=== PATIENT | male | born 1960 | race Two or more races ===

== ENCOUNTER 2016-10-07 13:58 | Inpatient (IN) | payer OTHER ==
[2016-10-07 15:11] VITALS: BMI 33.2
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
[2016-10-07] MEDS ORDERED: MAGNESIUM CITRATE 300 ML BOTTLE PO PRN (16:41)
[2016-10-07] MEDS ORDERED: hydrOXYzine PAMOATE 50 MG CAPSULE (FP) PO PRN (16:41)
[2016-10-07] MEDS ORDERED: chlordiazePOXIDE HCL 25 MG CAPSULE PO PRN (16:41)
[2016-10-07] MEDS ORDERED: LOPERAMIDE HCL 2 MG CAPSULE PO PRN (16:41)
[2016-10-07] MEDS ORDERED: MAGNESIUM HYDROX 2400MG/30ML ORAL SUSPENSION 30 ML CUP PO PRN (16:41)
[2016-10-07] MEDS ORDERED: MAG HYDROX/AL HYDROX/SIMETH 30 ML UNIT-DOSE CUP PO PRN (16:41)
[2016-10-07] MEDS ORDERED: P-EPHED 60MG/TRIPROLIDI 2.5MG TABLET PO PRN (16:41)
[2016-10-07] MEDS ORDERED: guaiFENesin/D-METHORPHAN HB 10 ML UNIT-DOSE CUPS PO PRN (16:41)
[2016-10-07] MEDS ORDERED: MENTHOL/PHENOL 1 EACH UD MM PRN (16:41)
[2016-10-07] MEDS ORDERED: chlordiazePOXIDE HCL 25 MG CAPSULE PO ONE (16:41)
[2016-10-07] MEDS ORDERED: diphenhydrAMINE HCL 50 MG CAPSULE PO PRN (16:41)
[2016-10-07] MEDS ORDERED: ACETAMINOPHEN 325 MG TABLET (FP) PO PRN (16:41)
[2016-10-07] MEDS ORDERED: ALBUTEROL SO4 6.7 GM HFA INHALER IH PRN (17:19)
[2016-10-07] MEDS: IBUPROFEN 400 MG TABLET (FP) PO PRN (17:24)
[2016-10-07 22:04] LABS: URINE APPEARANCE CLEAR; URINE BILIRUBIN NEGATIVE (NEGATIVE); URINE BLOOD NEGATIVE (NEGATIVE); URINE COLOR LTYELLOW; URINE GLUCOSE (UA) NEGATIVE (NEGATIVE); URINE KETONE NEGATIVE (NEGATIVE); URINE LEUK ESTERASE NEGATIVE (NEGATIVE); URINE NITRITE NEGATIVE (NEGATIVE); URINE PROTEIN NEGATIVE (NEGATIVE); URINE UROBILINOGEN NEGATIVE E.U./dl (0.2-1.0)
[2016-10-07] MEDS: THIAMINE HCL 100 MG TABLET (FP) PO SCH (22:43)
[2016-10-07] MEDS: chlordiazePOXIDE HCL 25 MG CAPSULE PO SCH (22:43)
[2016-10-08] MEDS: IBUPROFEN 400 MG TABLET (FP) PO PRN ×2 (05:29→17:03)
[2016-10-08] MEDS: chlordiazePOXIDE HCL 25 MG CAPSULE PO SCH ×4 (05:29→22:14)
[2016-10-08] MEDS: PRENATAL VITAMINS W/ FOLIC ACID TABLET (FP) PO SCH (10:35)
[2016-10-08 11:06] LABS: ALBUMIN 3.3 g/dl (3.4-5.0); ALK PHOS 71 U/L (45-117); ANION GAP 9 (8-16); CO2 25 mmol/L (21-32); GLUCOSE,RANDOM 87 mg/dL (74-106); SGOT/AST 29 U/L (15-37); SGPT/ALT 30 U/L (12-78); TOT PROT 5.8 g/dl (6.4-8.2)
--- NOTE | 2016-10-08 11:16 | PN ---
[facility] CIWA - CIWA Score Nausea/Vomitin-No Nausea/No Vomiting Muscle Tremors: 3 Anxiety: 4-Mod. Anxious/Guarded Agitation: 4-Moderately Restless Paroxysmal Sweats: 3 Orientation: 0-Oriented Tacttile Disturbances: 1-Very Mild Itch/Numbness Auditory Disturbances: 0-None Visual Disturbances: 0-None Headache: 0-None Present CIWA-Ar Total Score: 15 BHS Progress Note (SOAP) Subjective: ANXIETY,TREMORS,SWEATING,INTERRUPTED SLEEP,RESTLESS & PAIN LEFT WRIST WITH CAST. Objective: 10/08/16 11:10 Vital Signs - 8 hr 10/08/16 10/08/16 10/08/16 03:36 06:22 09:26 Temperature 98 F 98.1 F Pulse Rate 65 86 Respiratory 18 18 18 Rate Blood Pressure 141/86 142/80 Laboratory Last Values Sodium 142 mmol/L (136-145) 10/08/16 06:30 Potassium 3.5 mmol/L (3.5-5.1) 10/08/16 06:30 Chloride 108 mmol/L (98-107) H 10/08/16 06:30 Carbon Dioxide 25 mmol/L (21-32) 10/08/16 06:30 Anion Gap 9 (8-16) 10/08/16 06:30 BUN 13 mg/dL (7-18) 10/08/16 06:30 Creatinine 1.0 mg/dL (0.7-1.3) D 10/08/16 06:30 Creat Clearance w eGFR > 60 (>60) 10/08/16 06:30 Random Glucose 87 mg/dL (74-106) 10/08/16 06:30 Calcium 9.0 mg/dL (8.5-10.1) 10/08/16 06:30 Total Bilirubin 1.0 mg/dL (0.2-1.0) D 10/08/16 06:30 AST 29 U/L (15-37) D 10/08/16 06:30 ALT 30 U/L (12-78) D 10/08/16 06:30 Alkaline Phosphatase 71 U/L (45-117) 10/08/16 06:30 Total Protein 5.8 g/dl (6.4-8.2) L 10/08/16 06:30 Albumin 3.3 g/dl (3.4-5.0) L 10/08/16 06:30 Urine Color Ltyellow 10/07/16 21:00 Urine Appearance Clear 10/07/16 21:00 Urine pH 6.0 (5.0-8.0) 10/07/16 21:00 Ur Specific [place] 1.016 (1.001-1.035) 10/07/16 21:00 Urine Protein Negative (NEGATIVE) 10/07/16 21:00 Urine Glucose (UA) Negative (NEGATIVE) 10/07/16 21:00 Urine Ketones Negative (NEGATIVE) 10/07/16 21:00 Urine Blood Negative (NEGATIVE) 10/07/16 21:00 Urine Nitrite Negative (NEGATIVE) 10/07/16 21:00 Urine Bilirubin Negative (NEGATIVE) 10/07/16 21:00 Urine Urobilinogen Negative E.U./dl (0.2-1.0) 10/07/16 21:00 Ur Leukocyte Esterase Negative (NEGATIVE) 10/07/16 21:00 LABS NOTED Assessment: 10/08/16 11:16 WITHDRAWAL SX. Plan: CONTINUE DETOX
[2016-10-08 11:18] LABS: MCH 30.8 pg (25.7-33.7); MCHC 34.3 g/dl (32.0-35.9); MEAN CELL VOLUME 89.7 fl (80-96); MEAN PLT VOLUME 8.9 fl (7.5-11.1); PLATELET COUNT 187 K/MM3 (134-434); RDW 13.4 % (11.9-15.9); WHITE BLOOD COUNT 3.9 K/mm3 (4.0-10.0)
--- NOTE | 2016-10-08 15:04 | CONSULT ---
[facility] Psychiatric Consult - Data Date of interview: 10/08/16 Admission source: [facility] Identifying data: This is 56 years old male with history of Schizoaffective disorder intoxicated with: Cocaine, Al;cohol, Cannabis, PCP abuse history Substance Abuse History: - Smoking Cessation. Smoking history: Former smoker. Have you smoked in the past 12 months: No. Aproximately how many cigarettes per day: 0. If you are a former smoker, when did you quit?: 3 years ago. Cigars Per Day: 0. Hx Chewing Tobacco Use: No. Initiated information on smoking cessation: No. - Substance & Tx. History. Hx Alcohol Use: Yes. Hx Substance Use: Yes. Substance Use Type: Alcohol, Cocaine, Marijuana. Hx Substance Use Treatment: Yes. - Substances Abused. Alcohol. Route: Oral. Frequency: Daily. Amount used: beer 40oz, 4 bottles. Age of first use: 32. Date of Last Use: 10/06/16. Cocaine. Route: Smoking. Frequency: Daily. Amount used: $50- 60. Age of first use: 24. Date of Last Use: 10/06/16 Medical History: Asthma, LBP, Syncope history, GERD Psychiatric History: P-atient reports to carry Schizopaffective disorder with the most recen [id number] admission at [facility] 2 weeks ago due to hearing voices, reportas takinf prior to admission: Seroquel 100mg po tid Physical/Sexual Abuse/Trauma History: Denies Additional Comment: Seroquel 100mg po tid Mental Status Exam - Mental Status Exam Alert and Oriented to: Person Cognitive Function: Fair Patient Appearance: Unkempt Mood: Sad Affect: Mood Congruent Patient Behavior: Cooperative Speech Pattern: Appropriate Voice Loudness: Normal Thought Process: Goal Oriented Thought Disorder: Being Controlled Hallucinations: Denies Suicidal Ideation: Denies Homicidal Ideation: Denies Insight/Judgement: Fair Sleep: Difficulty falling asleep Appetite: Fair Muscle strength/Tone: Normal Gait/Station: Shuffling Additional Comments: Seroquel 100mg po tid Psychiatric Findings - Problem List ([place] 1, 2,3) (1) Alcohol dependence with uncomplicated withdrawal Current Visit: Yes Status: Acute (2) Cannabis dependence, uncomplicated Current Visit: Yes Status: Chronic (3) Cocaine dependence, uncomplicated Current Visit: Yes Status: Chronic (4) PCP abuse Current Visit: No Status: Acute (5) Alcohol dependence Current Visit: No Status: Chronic (6) Bipolar disorder Current Visit: No Status: Chronic (7) Cocaine dependence Current Visit: No Status: Chronic (8) GERD (gastroesophageal reflux disease) Current Visit: No Status: Chronic (9) Schizoaffective disorder, bipolar type Current Visit: No Status: Chronic (10) marijuana dependence Current Visit: No Status: Chronic - Initial Treatment Plan Initial Treatment Plan: Seroquel 100mg po tid
--- NOTE | 2016-10-08 16:23 | EKG ---
Test Reason : Blood Pressure : / mmHG Vent. Rate : 085 BPM Atrial Rate : 086 BPM P-R Int : 158 ms QRS Dur : 094 ms QT Int : 386 ms P-R-T Axes : 081 076 094 degrees QTc Int : 459 ms NORMAL SINUS RHYTHM NORMAL ECG NO PREVIOUS ECGS AVAILABLE Confirmed by SOCO APONTE MD ([id number]) on 10/08/2016 4:23:15 PM Referred By: Confirmed By:SOCO APONTE MD
[2016-10-08] MEDS: QUEtiapine FUMARATE 100 MG TABLET (FP) PO SCH ×2 (16:26→22:14)
[2016-10-08] MEDS: THIAMINE HCL 100 MG TABLET (FP) PO SCH (22:14)
[2016-10-09] MEDS: QUEtiapine FUMARATE 100 MG TABLET (FP) PO SCH ×3 (05:52→22:10)
[2016-10-09] MEDS: IBUPROFEN 400 MG TABLET (FP) PO PRN (05:52)
[2016-10-09] MEDS: chlordiazePOXIDE HCL 25 MG CAPSULE PO SCH ×3 (05:52→17:30)
[2016-10-09] MEDS: PRENATAL VITAMINS W/ FOLIC ACID TABLET (FP) PO SCH (10:47)
--- NOTE | 2016-10-09 10:50 | PN ---
[facility] CIWA - CIWA Score Nausea/Vomitin-No Nausea/No Vomiting Muscle Tremors: 4-Moderate,w/Arms Extend Anxiety: 4-Mod. Anxious/Guarded Agitation: 4-Moderately Restless Paroxysmal Sweats: 1-Minimal Palms Moist Orientation: 0-Oriented Tacttile Disturbances: 3-Moderate Itch/Numb/Burn Auditory Disturbances: 0-None Visual Disturbances: 0-None Headache: 0-None Present CIWA-Ar Total Score: 16 BHS Progress Note (SOAP) Subjective: ANXIETY,BODYACHES,SWEATS. Objective: 10/09/16 10:49 Vital Signs Temperature 96.7 F L 10/09/16 10:12 Pulse Rate 78 10/09/16 10:12 Respiratory Rate 18 10/09/16 10:12 Blood Pressure 134/80 10/09/16 10:12 O2 Sat by Pulse Oximetry (%) Laboratory Last Values WBC 3.9 K/mm3 (4.0-10.0) L D 10/08/16 06:30 RBC 4.49 M/mm3 (4.00-5.60) 10/08/16 06:30 Hgb 13.8 GM/dL (11.7-16.9) D 10/08/16 06:30 Hct 40.3 % (35.4-49) 10/08/16 06:30 MCV 89.7 fl (80-96) 10/08/16 06:30 MCHC 34.3 g/dl (32.0-35.9) 10/08/16 06:30 RDW 13.4 % (11.9-15.9) 10/08/16 06:30 Plt Count 187 K/MM3 (134-434) 10/08/16 06:30 MPV 8.9 fl (7.5-11.1) 10/08/16 06:30 Sodium 142 mmol/L (136-145) 10/08/16 06:30 Potassium 3.5 mmol/L (3.5-5.1) 10/08/16 06:30 Chloride 108 mmol/L (98-107) H 10/08/16 06:30 Carbon Dioxide 25 mmol/L (21-32) 10/08/16 06:30 Anion Gap 9 (8-16) 10/08/16 06:30 BUN 13 mg/dL (7-18) 10/08/16 06:30 Creatinine 1.0 mg/dL (0.7-1.3) D 10/08/16 06:30 Creat Clearance w eGFR > 60 (>60) 10/08/16 06:30 Random Glucose 87 mg/dL (74-106) 10/08/16 06:30 Calcium 9.0 mg/dL (8.5-10.1) 10/08/16 06:30 Total Bilirubin 1.0 mg/dL (0.2-1.0) D 10/08/16 06:30 AST 29 U/L (15-37) D 10/08/16 06:30 ALT 30 U/L (12-78) D 10/08/16 06:30 Alkaline Phosphatase 71 U/L (45-117) 10/08/16 06:30 Total Protein 5.8 g/dl (6.4-8.2) L 10/08/16 06:30 Albumin 3.3 g/dl (3.4-5.0) L 10/08/16 06:30 Urine Color Ltyellow 10/07/16 21:00 Urine Appearance Clear 10/07/16 21:00 Urine pH 6.0 (5.0-8.0) 10/07/16 21:00 Ur Specific [place] 1.016 (1.001-1.035) 10/07/16 21:00 Urine Protein Negative (NEGATIVE) 10/07/16 21:00 Urine Glucose (UA) Negative (NEGATIVE) 10/07/16 21:00 Urine Ketones Negative (NEGATIVE) 10/07/16 21:00 Urine Blood Negative (NEGATIVE) 10/07/16 21:00 Urine Nitrite Negative (NEGATIVE) 10/07/16 21:00 Urine Bilirubin Negative (NEGATIVE) 10/07/16 21:00 Urine Urobilinogen Negative E.U./dl (0.2-1.0) 10/07/16 21:00 Ur Leukocyte Esterase Negative (NEGATIVE) 10/07/16 21:00 RPR Titer Nonreactive (NONREACTIVE) 10/08/16 06:30 Assessment: 10/09/16 10:50 WITHDRAWAL SX Plan: CONTINUE DETOX
[2016-10-09] MEDS: THIAMINE HCL 100 MG TABLET (FP) PO SCH (22:10)
[2016-10-09] MEDS: chlordiazePOXIDE 5 MG CAPSULE PO SCH (22:11)
[2016-10-10] MEDS: chlordiazePOXIDE 5 MG CAPSULE PO SCH ×3 (05:37→17:13)
[2016-10-10] MEDS: IBUPROFEN 400 MG TABLET (FP) PO PRN (05:37)
[2016-10-10] MEDS: QUEtiapine FUMARATE 100 MG TABLET (FP) PO SCH ×3 (05:37→22:17)
[2016-10-10] MEDS: PRENATAL VITAMINS W/ FOLIC ACID TABLET (FP) PO SCH (10:32)
--- NOTE | 2016-10-10 11:03 | PN ---
BHS Progress Note (SOAP) Subjective: SWEATING,INTERRUPTED SLEEP,RESTLESS. Objective: 10/10/16 11:02 Vital Signs - 8 hr 10/10/16 10/10/16 10/10/16 03:27 06:20 07:26 Temperature 96.0 F L Pulse Rate 64 91 H Respiratory 18 18 Rate Blood Pressure 161/105 130/82 10/10/16 10:00 Temperature 98.2 F Pulse Rate 84 Respiratory 18 Rate Blood Pressure 142/85 Laboratory Last Values WBC 3.9 K/mm3 (4.0-10.0) L D 10/08/16 06:30 RBC 4.49 M/mm3 (4.00-5.60) 10/08/16 06:30 Hgb 13.8 GM/dL (11.7-16.9) D 10/08/16 06:30 Hct 40.3 % (35.4-49) 10/08/16 06:30 MCV 89.7 fl (80-96) 10/08/16 06:30 MCHC 34.3 g/dl (32.0-35.9) 10/08/16 06:30 RDW 13.4 % (11.9-15.9) 10/08/16 06:30 Plt Count 187 K/MM3 (134-434) 10/08/16 06:30 MPV 8.9 fl (7.5-11.1) 10/08/16 06:30 Sodium 142 mmol/L (136-145) 10/08/16 06:30 Potassium 3.5 mmol/L (3.5-5.1) 10/08/16 06:30 Chloride 108 mmol/L (98-107) H 10/08/16 06:30 Carbon Dioxide 25 mmol/L (21-32) 10/08/16 06:30 Anion Gap 9 (8-16) 10/08/16 06:30 BUN 13 mg/dL (7-18) 10/08/16 06:30 Creatinine 1.0 mg/dL (0.7-1.3) D 10/08/16 06:30 Creat Clearance w eGFR > 60 (>60) 10/08/16 06:30 Random Glucose 87 mg/dL (74-106) 10/08/16 06:30 Calcium 9.0 mg/dL (8.5-10.1) 10/08/16 06:30 Total Bilirubin 1.0 mg/dL (0.2-1.0) D 10/08/16 06:30 AST 29 U/L (15-37) D 10/08/16 06:30 ALT 30 U/L (12-78) D 10/08/16 06:30 Alkaline Phosphatase 71 U/L (45-117) 10/08/16 06:30 Total Protein 5.8 g/dl (6.4-8.2) L 10/08/16 06:30 Albumin 3.3 g/dl (3.4-5.0) L 10/08/16 06:30 Urine Color Ltyellow 10/07/16 21:00 Urine Appearance Clear 10/07/16 21:00 Urine pH 6.0 (5.0-8.0) 10/07/16 21:00 Ur Specific [place] 1.016 (1.001-1.035) 10/07/16 21:00 Urine Protein Negative (NEGATIVE) 10/07/16 21:00 Urine Glucose (UA) Negative (NEGATIVE) 10/07/16 21:00 Urine Ketones Negative (NEGATIVE) 10/07/16 21:00 Urine Blood Negative (NEGATIVE) 10/07/16 21:00 Urine Nitrite Negative (NEGATIVE) 10/07/16 21:00 Urine Bilirubin Negative (NEGATIVE) 10/07/16 21:00 Urine Urobilinogen Negative E.U./dl (0.2-1.0) 10/07/16 21:00 Ur Leukocyte Esterase Negative (NEGATIVE) 10/07/16 21:00 RPR Titer Nonreactive (NONREACTIVE) 10/08/16 06:30 LABS NOTED Assessment: 10/10/16 11:03 WITHDRAWAL SX. Plan: CONTINUE DETOX
[2016-10-10] MEDS: THIAMINE HCL 100 MG TABLET (FP) PO SCH (22:17)
[2016-10-10] MEDS: chlordiazePOXIDE HCL 10 MG CAPSULE PO SCH (22:17)
[2016-10-11] MEDS: IBUPROFEN 400 MG TABLET (FP) PO PRN (05:44)
[2016-10-11] MEDS: chlordiazePOXIDE HCL 10 MG CAPSULE PO SCH ×2 (05:44→10:54)
[2016-10-11] MEDS: QUEtiapine FUMARATE 100 MG TABLET (FP) PO SCH (05:44)
[2016-10-11 09:42] VITALS: BP 146/91; PULSE 104; TEMP 96.4
[2016-10-11] MEDS: PRENATAL VITAMINS W/ FOLIC ACID TABLET (FP) PO SCH (10:54)
--- NOTE | 2016-10-11 15:34 | PN ---
S Progress Note (SOAP) Subjective: no complaints of withdrawal, pain from fx arm controlled with motrin no additional medications requested. Objective: 10/11/16 15:33 Vital Signs - 24 hr 10/10/16 10/10/16 10/11/16 18:07 21:57 00:34 Temperature 96.7 F L 97.2 F L Pulse Rate 65 77 Respiratory 18 19 18 Rate Blood Pressure 148/79 146/85 10/11/16 10/11/16 10/11/16 03:30 06:10 09:42 Temperature 97.0 F L 96.4 F L Pulse Rate 65 104 H Respiratory 18 18 18 Rate Blood Pressure 139/94 146/91 tachycardia, elevated bp Assessment: 10/11/16 15:33 tachycardia, elevated, bp, pain from fx Plan: completed detox, medically stable, transfer to rehab, symptomatic treatmentof pain and elevated bp/tac hycatrdia as meeed./
--- NOTE | 2016-10-11 15:37 | DS ---
[facility] Detox Discharge Summary Admission Date: 10/07/16 Discharge Date: 10/11/16 - History Present History: Alcohol Dependence, Cannabis Dependence, Cocaine Dependence Pertinent Past History: astma, PCP abuse, fx wrist - Physical Exam Results Vital Signs: Vital Signs Temperature 96.4 F L 10/11/16 09:42 Pulse Rate 104 H 10/11/16 09:42 Respiratory Rate 18 10/11/16 09:42 Blood Pressure 146/91 10/11/16 09:42 O2 Sat by Pulse Oximetry (%) Pertinent Admission Physical Exam Findings: withdrawal sx - Treatment Hospital Course: Detox Protocol Followed, Detoxed Safely, Responded well, Discharged Condition Good, Rehab Referral Accepted Patient has Accepted a Rehab Referral to: yes - Medication Discharge Medications: Ambulatory Orders Quetiapine Fumarate [Seroquel] 100 mg PO TID #90 tablet 10/08/16 - Diagnosis (1) Schizoaffective disorder Status: Chronic (2) Alcohol dependence with uncomplicated withdrawal Status: Acute (3) Asthma Status: Chronic Qualifiers: Asthma severity: mild intermittent Asthma complication type: with status asthmaticus Qualified Code(s): J45.22 - Mild intermittent asthma with status asthmaticus (4) Left wrist fracture Status: Acute Qualifiers: Encounter type: subsequent encounter Fracture healing: with routine healing Qualified Code(s): S62.102D - Fracture of unspecified carpal bone , left wrist, subsequent encounter for fracture with routine healing (5) PCP abuse Status: Acute (6) Alcohol dependence Status: Chronic (7) Bipolar disorder Status: Chronic (8) Cannabis dependence, uncomplicated Status: Chronic (9) Cocaine dependence, uncomplicated Status: Chronic (10) GERD (gastroesophageal reflux disease) Status: Chronic (11) Schizoaffective disorder, bipolar type Status: Chronic (12) contusion of right hip and ankle Status: Chronic (13) marijuana dependence Status: Chronic (14) syncope alcohol related Status: Resolved - AMA Did Patient Leave Against Medical Advice: No
== END 2016-10-11 11:15 | disposition other institution (70) | DRG 774 ==
LOC: YASAS 13:58 → Y3N 15:57
PROVIDERS: ADMIT Internal Medicine; ATTEND Internal Medicine
PROC: HZ2ZZZZ Detoxification Services for Substance Abuse Treatment (ICD-10-PCS; principal; 2016-10-07)
DX: F10.230 Alcohol dependence with withdrawal, uncomplicated (principal); F14.20 Cocaine dependence, uncomplicated; F12.20 Cannabis dependence, uncomplicated; F16.10 Hallucinogen abuse, uncomplicated; F25.0 Schizoaffective disorder, bipolar type; F31.81 Bipolar II disorder; J45.22 Mild intermittent asthma with status asthmaticus; K21.9 Gastro-esophageal reflux disease without esophagitis; R00.0 Tachycardia, unspecified; R03.0 Elevated blood-pressure reading, without diagnosis of hypertension; M54.5 Low back pain; G89.29 Other chronic pain; S62.102D Fracture of unspecified carpal bone, left wrist, subsequent encounter for fracture with routine healing; Z86.79 Personal history of other diseases of the circulatory system; Z87.891 Personal history of nicotine dependence; X58.XXXD Exposure to other specified factors, subsequent encounter
CPT/HCPCS: 36415; 80053; 81003; 85027; 86593; 93005; 93010

== ENCOUNTER 2016-10-11 11:32 | Inpatient (IN) | payer OTHER ==
[2016-10-11 12:04] VITALS: BMI 35.6
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
[2016-10-11] MEDS: QUEtiapine FUMARATE 100 MG TABLET (FP) PO SCH ×2 (14:35→21:18)
[2016-10-11] MEDS ORDERED: guaiFENesin/D-METHORPHAN HB 10 ML UNIT-DOSE CUPS PO PRN (15:31)
[2016-10-11] MEDS ORDERED: hydrOXYzine PAMOATE 50 MG CAPSULE (FP) PO PRN (15:31)
[2016-10-11] MEDS ORDERED: MENTHOL/PHENOL 1 EACH UD MM PRN (15:31)
[2016-10-11] MEDS ORDERED: LOPERAMIDE HCL 2 MG CAPSULE PO PRN (15:31)
[2016-10-11] MEDS ORDERED: diphenhydrAMINE HCL 50 MG CAPSULE PO PRN (15:31)
[2016-10-11] MEDS ORDERED: MAGNESIUM CITRATE 300 ML BOTTLE PO PRN (15:31)
[2016-10-11] MEDS ORDERED: MAGNESIUM HYDROX 2400MG/30ML ORAL SUSPENSION 30 ML CUP PO PRN (15:31)
[2016-10-11] MEDS ORDERED: P-EPHED 60MG/TRIPROLIDI 2.5MG TABLET PO PRN (15:31)
[2016-10-11] MEDS ORDERED: MAG HYDROX/AL HYDROX/SIMETH 30 ML UNIT-DOSE CUP PO PRN (15:31)
--- NOTE | 2016-10-11 16:21 | HP ---
[facility] Rehab Assess/Revision - Admission History Ad[facility] to Rehab from: [facility] Date of Admission to Rehab: 10/11/16 - Vital signs Vital Signs: Vital Signs Period Temp Pulse Resp BP Sys/Dominguez Pulse Ox Last 24 Hr 98.6 F 93 20 128/91 - Findings Detox History & Physical reviewed: Yes Concur with findings: Yes Comments/Additional Findings: trasnferred from detox to rehab admission as per protocol
[2016-10-11] MEDS: IBUPROFEN 400 MG TABLET (FP) PO PRN (16:35)
[2016-10-11] MEDS: THIAMINE HCL 100 MG TABLET (FP) PO SCH (21:18)
[2016-10-12] MEDS: QUEtiapine FUMARATE 100 MG TABLET (FP) PO SCH ×3 (06:12→21:45)
[2016-10-12] MEDS: IBUPROFEN 400 MG TABLET (FP) PO PRN (09:58)
[2016-10-12] MEDS: PRENATAL VITAMINS W/ FOLIC ACID TABLET (FP) PO SCH (09:58)
[2016-10-12] MEDS: NAPROXEN 375 MG TABLET (FP) PO SCH (21:44)
[2016-10-12] MEDS: THIAMINE HCL 100 MG TABLET (FP) PO SCH (21:44)
[2016-10-13] MEDS: QUEtiapine FUMARATE 100 MG TABLET (FP) PO SCH ×3 (06:07→21:32)
[2016-10-13] MEDS: PRENATAL VITAMINS W/ FOLIC ACID TABLET (FP) PO SCH (09:27)
[2016-10-13] MEDS: NAPROXEN 375 MG TABLET (FP) PO SCH ×2 (09:28→21:30)
[2016-10-13] MEDS ORDERED: QUEtiapine FUMARATE 50 MG TABLET ONE (19:34)
[2016-10-13] MEDS: THIAMINE HCL 100 MG TABLET (FP) PO SCH (21:30)
[2016-10-14] MEDS ORDERED: QUEtiapine FUMARATE 50 MG TABLET ONE ×2 (05:28→14:08)
[2016-10-14] MEDS: QUEtiapine FUMARATE 100 MG TABLET (FP) PO SCH ×3 (06:11→21:39)
[2016-10-14] MEDS: NAPROXEN 375 MG TABLET (FP) PO SCH (10:14)
[2016-10-14] MEDS: PRENATAL VITAMINS W/ FOLIC ACID TABLET (FP) PO SCH (10:14)
[2016-10-14] MEDS: THIAMINE HCL 100 MG TABLET (FP) PO SCH (21:39)
[2016-10-14] MEDS: NAPROXEN 500 MG TABLET (FP) PO SCH (21:40)
[2016-10-15] MEDS: QUEtiapine FUMARATE 100 MG TABLET (FP) PO SCH ×3 (06:05→21:11)
[2016-10-15] MEDS: NAPROXEN 500 MG TABLET (FP) PO SCH ×2 (09:55→21:11)
[2016-10-15] MEDS: PRENATAL VITAMINS W/ FOLIC ACID TABLET (FP) PO SCH (09:55)
[2016-10-15] MEDS: THIAMINE HCL 100 MG TABLET (FP) PO SCH (21:11)
[2016-10-16] MEDS: QUEtiapine FUMARATE 100 MG TABLET (FP) PO SCH ×3 (06:18→21:32)
[2016-10-16] MEDS: PRENATAL VITAMINS W/ FOLIC ACID TABLET (FP) PO SCH (09:32)
[2016-10-16] MEDS: NAPROXEN 500 MG TABLET (FP) PO SCH ×2 (09:32→21:32)
[2016-10-16] MEDS: ACETAMINOPHEN 325 MG TABLET (FP) PO PRN (13:11)
[2016-10-16] MEDS ORDERED: LIDOCAINE VISCOUS 2% ORAL/TOP 20 ML UNIT-DOSE CUP MM PRN (14:11)
[2016-10-16] MEDS: THIAMINE HCL 100 MG TABLET (FP) PO SCH (21:32)
[2016-10-17] MEDS: QUEtiapine FUMARATE 100 MG TABLET (FP) PO SCH ×3 (05:58→21:37)
[2016-10-17] MEDS: PRENATAL VITAMINS W/ FOLIC ACID TABLET (FP) PO SCH (10:15)
[2016-10-17] MEDS: NAPROXEN 500 MG TABLET (FP) PO SCH ×2 (10:15→21:38)
[2016-10-17] MEDS: ACETAMINOPHEN 325 MG TABLET (FP) PO PRN ×2 (11:44→21:38)
--- NOTE | 2016-10-17 11:58 | PN ---
Psychiatric Progress Note Vital Signs: Vital Signs Period Temp Pulse Resp BP Sys/Dominguez Pulse Ox Last 24 Hr 97.7 F-98.4 F 73-84 18-20 135-154/73-97 Date of Session: 10/17/16 Chief Complaint:: Psychiatrist Discharge Note HPI: Patient addressingAlcohol, Cocaine and Cannabis Dependence comorbid with Bipolar II Disorder ROS: Asthma, GERD were medically managed Current Medications: Active Medications Generic Name Dose Route Start Last Admin Trade Name Freq PRN Reason Stop Dose Admin Acetaminophen 650 mg 10/11/16 15:31 10/17/16 11:44 Tylenol - PO 650 mg Q4H PRN Administration FEVER OR PAIN Al Hydroxide/Mg Hydroxide 30 ml 10/11/16 15:31 Mylanta Oral Suspension - PO Q6H PRN DYSPEPSIA Diphenhydramine HCl 50 mg 10/11/16 15:31 Benadryl - PO HSMR1 PRN FOR ITCHING Eucalyptus/Menthol/Phenol/Sorbitol 1 each 10/11/16 15:31 Cepastat Lozenge - MM Q4H PRN SORE THROAT Guaifenesin 10 ml 10/11/16 15:31 Robitussin Dm - PO Q6H PRN COUGH Hydroxyzine Pamoate 50 mg 10/11/16 15:31 Vistaril - PO Q4H PRN AGITATION Lidocaine HCl 20 ml 10/16/16 14:11 Xylocaine 2% Viscous Oral - MM Q6HPO PRN ORAL PAIN/MOUTH SORES Loperamide HCl 4 mg 10/11/16 15:31 Imodium - PO Q6H PRN DIARRHEA Magnesium Hydroxide 30 ml 10/11/16 15:31 Milk Of Magnesia - PO DAILY PRN CONSTIPATION Naproxen 500 mg 10/14/16 22:00 10/17/16 10:15 Naprosyn - PO 10/20/16 10:00 500 mg BID MARKUS Administration Multivit/Folic Acid/Iron 1 tab 10/12/16 10:00 10/17/16 10:15 Vitamins (Sjr) - PO 1 tab DAILY MARKUS Administration Pseudoephedrine/Triprolidine 1 combo 10/11/16 15:31 Actifed - PO TID PRN NASAL CONGESTION Quetiapine Fumarate 100 mg 10/11/16 14:00 10/17/16 05:58 Seroquel - PO 100 mg TID MARKUS Administration Thiamine HCl 100 mg 10/11/16 22:00 10/16/16 21:32 Vitamin B1 - PO 100 mg HS MARKUS Administration Current Side Effect: No Lab tests ordered: Yes Lab tests reviewed: Yes Provider note:: Patient will complete this program on 10/18/16. He has met his treatment goals and will continue to address his issues in outpatient treatment at. He responded well to Seroquel 100 mg po TID. Script for 30 days supply of that medication will be electronically transmitted to [facility] at [address] [place], [place] [id number]. He is stable for discharge on 10/18/16 Total face to face time:: 35 Mental Status Exam - Mental Status Exam Alert and Oriented to: Time, Place, Person Cognitive Function: Fair Patient Appearance: Well Groomed Mood: Hopeful, Euthymic Affect: Appropriate Patient Behavior: Cooperative Speech Pattern: Clear Voice Loudness: Normal Thought Process: Intact Thought Disorder: Not Present Hallucinations: Denies Suicidal Ideation: Denies Insight/Judgement: Fair Sleep: Fair Appetite: Good Muscle strength/Tone: Normal Gait/Station: Normal Psychiatric Treatment Plan - Problem List (1) Alcohol dependence with uncomplicated withdrawal Current Visit: No (2) Cocaine dependence, uncomplicated Current Visit: No (3) Cannabis dependence, uncomplicated Current Visit: No (4) Bipolar II disorder Current Visit: No (5) Schizoaffective disorder Current Visit: Yes (6) Asthma Current Visit: No Qualifiers: Asthma severity: mild intermittent Asthma complication type: with status asthmaticus Qualified Code(s): J45.22 - Mild intermittent asthma with status asthmaticus Comment: last episode "years ago" (7) Left wrist fracture Current Visit: No Qualifiers: Encounter type: subsequent encounter Fracture healing: with routine healing Qualified Code(s): S62.102D - Fracture of unspecified carpal bone , left wrist, subsequent encounter for fracture with routine healing Comment: 1/2 cast + acebandage (8) GERD (gastroesophageal reflux disease) Current Visit: No (9) contusion of right hip and ankle Current Visit: No Initial treatment plan: Patient will be discharged tomorrow and referred to for outpatient treatment
[2016-10-17] MEDS: THIAMINE HCL 100 MG TABLET (FP) PO SCH (21:37)
[2016-10-18] MEDS: QUEtiapine FUMARATE 100 MG TABLET (FP) PO SCH ×3 (06:12→21:15)
[2016-10-18] MEDS: NAPROXEN 500 MG TABLET (FP) PO SCH ×2 (10:20→21:16)
[2016-10-18] MEDS: PRENATAL VITAMINS W/ FOLIC ACID TABLET (FP) PO SCH (10:21)
[2016-10-18] MEDS: ACETAMINOPHEN 325 MG TABLET (FP) PO PRN (14:13)
[2016-10-18] MEDS: THIAMINE HCL 100 MG TABLET (FP) PO SCH (21:15)
[2016-10-19] MEDS: QUEtiapine FUMARATE 100 MG TABLET (FP) PO SCH ×3 (06:56→21:16)
[2016-10-19] MEDS: PRENATAL VITAMINS W/ FOLIC ACID TABLET (FP) PO SCH (10:38)
[2016-10-19] MEDS: NAPROXEN 500 MG TABLET (FP) PO SCH ×2 (10:38→21:17)
[2016-10-19] MEDS: THIAMINE HCL 100 MG TABLET (FP) PO SCH (21:16)
[2016-10-19] MEDS: ACETAMINOPHEN 325 MG TABLET (FP) PO PRN (21:18)
[2016-10-20] MEDS: QUEtiapine FUMARATE 100 MG TABLET (FP) PO SCH ×3 (06:34→21:10)
[2016-10-20] MEDS: NAPROXEN 500 MG TABLET (FP) PO SCH (10:07)
[2016-10-20] MEDS: PRENATAL VITAMINS W/ FOLIC ACID TABLET (FP) PO SCH (10:08)
[2016-10-20] MEDS: ACETAMINOPHEN 325 MG TABLET (FP) PO PRN (11:05)
[2016-10-20] MEDS: THIAMINE HCL 100 MG TABLET (FP) PO SCH (21:10)
[2016-10-21] MEDS: QUEtiapine FUMARATE 100 MG TABLET (FP) PO SCH ×3 (07:08→21:46)
[2016-10-21] MEDS: PRENATAL VITAMINS W/ FOLIC ACID TABLET (FP) PO SCH (11:07)
[2016-10-21] MEDS: ACETAMINOPHEN 325 MG TABLET (FP) PO PRN (14:06)
[2016-10-21] MEDS: THIAMINE HCL 100 MG TABLET (FP) PO SCH (21:46)
[2016-10-22] MEDS: QUEtiapine FUMARATE 100 MG TABLET (FP) PO SCH ×3 (06:11→21:03)
[2016-10-22] MEDS: PRENATAL VITAMINS W/ FOLIC ACID TABLET (FP) PO SCH (10:17)
[2016-10-22] MEDS: ACETAMINOPHEN 325 MG TABLET (FP) PO PRN (14:15)
[2016-10-23] MEDS: QUEtiapine FUMARATE 100 MG TABLET (FP) PO SCH ×3 (06:15→21:02)
[2016-10-23] MEDS: ACETAMINOPHEN 325 MG TABLET (FP) PO PRN (14:09)
[2016-10-24] MEDS: QUEtiapine FUMARATE 100 MG TABLET (FP) PO SCH ×3 (06:05→21:42)
[2016-10-25] MEDS: QUEtiapine FUMARATE 100 MG TABLET (FP) PO SCH ×3 (06:29→21:36)
[2016-10-26] MEDS: QUEtiapine FUMARATE 100 MG TABLET (FP) PO SCH ×3 (06:23→21:09)
[2016-10-26] MEDS: ACETAMINOPHEN 325 MG TABLET (FP) PO PRN ×2 (13:33→21:09)
[2016-10-27] MEDS: QUEtiapine FUMARATE 100 MG TABLET (FP) PO SCH ×3 (06:03→21:02)
[2016-10-27] MEDS: ACETAMINOPHEN 325 MG TABLET (FP) PO PRN (21:02)
[2016-10-28] MEDS: QUEtiapine FUMARATE 100 MG TABLET (FP) PO SCH ×3 (06:21→21:02)
[2016-10-28] MEDS: ACETAMINOPHEN 325 MG TABLET (FP) PO PRN (20:46)
[2016-10-29] MEDS: QUEtiapine FUMARATE 100 MG TABLET (FP) PO SCH ×3 (06:10→21:03)
[2016-10-29] MEDS: ACETAMINOPHEN 325 MG TABLET (FP) PO PRN (13:36)
[2016-10-30] MEDS: QUEtiapine FUMARATE 100 MG TABLET (FP) PO SCH ×3 (06:00→21:02)
[2016-10-30] MEDS: ACETAMINOPHEN 325 MG TABLET (FP) PO PRN ×2 (09:24→14:11)
[2016-10-31] MEDS: QUEtiapine FUMARATE 100 MG TABLET (FP) PO SCH ×3 (06:33→21:03)
[2016-10-31] MEDS: ACETAMINOPHEN 325 MG TABLET (FP) PO PRN (13:56)
[2016-11-01] MEDS: QUEtiapine FUMARATE 100 MG TABLET (FP) PO SCH ×3 (06:09→21:40)
[2016-11-01] MEDS: ACETAMINOPHEN 325 MG TABLET (FP) PO PRN (13:34)
[2016-11-02] MEDS: QUEtiapine FUMARATE 100 MG TABLET (FP) PO SCH ×3 (06:25→21:05)
[2016-11-02] MEDS: ACETAMINOPHEN 325 MG TABLET (FP) PO PRN (11:06)
[2016-11-03] MEDS: QUEtiapine FUMARATE 100 MG TABLET (FP) PO SCH ×3 (06:58→21:05)
[2016-11-04] MEDS: QUEtiapine FUMARATE 100 MG TABLET (FP) PO SCH ×3 (06:35→21:09)
[2016-11-04] MEDS: ACETAMINOPHEN 325 MG TABLET (FP) PO PRN (11:09)
[2016-11-05] MEDS: QUEtiapine FUMARATE 100 MG TABLET (FP) PO SCH ×3 (05:53→21:30)
[2016-11-05] MEDS: ACETAMINOPHEN 325 MG TABLET (FP) PO PRN (11:43)
[2016-11-06] MEDS: QUEtiapine FUMARATE 100 MG TABLET (FP) PO SCH ×3 (06:07→21:59)
[2016-11-06] MEDS: ACETAMINOPHEN 325 MG TABLET (FP) PO PRN (14:02)
--- NOTE | 2016-11-06 15:55 | PN ---
Psychiatric Progress Note Vital Signs: Vital Signs Period Temp Pulse Resp BP Sys/Dominguez Pulse Ox Last 24 Hr 97.7 F 71 18-20 140/88 Date of Session: 11/06/16 Chief Complaint:: Disharge visit HPI: Patient addressed Cocaine dependence comorbid with schizoaffective disorder. ROS: Fracture of L wrist. Current Medications: Active Medications Generic Name Dose Route Start Last Admin Trade Name Freq PRN Reason Stop Dose Admin Acetaminophen 650 mg 10/11/16 15:31 11/06/16 14:02 Tylenol - PO 650 mg Q4H PRN Administration FEVER OR PAIN Al Hydroxide/Mg Hydroxide 30 ml 10/11/16 15:31 Mylanta Oral Suspension - PO Q6H PRN DYSPEPSIA Diphenhydramine HCl 50 mg 10/11/16 15:31 Benadryl - PO HSMR1 PRN FOR ITCHING Eucalyptus/Menthol/Phenol/Sorbitol 1 each 10/11/16 15:31 Cepastat Lozenge - MM Q4H PRN SORE THROAT Guaifenesin 10 ml 10/11/16 15:31 Robitussin Dm - PO Q6H PRN COUGH Hydroxyzine Pamoate 50 mg 10/11/16 15:31 Vistaril - PO Q4H PRN AGITATION Lidocaine HCl 20 ml 10/16/16 14:11 Xylocaine 2% Viscous Oral - MM Q6HPO PRN ORAL PAIN/MOUTH SORES Loperamide HCl 4 mg 10/11/16 15:31 Imodium - PO Q6H PRN DIARRHEA Magnesium Hydroxide 30 ml 10/11/16 15:31 Milk Of Magnesia - PO DAILY PRN CONSTIPATION Pseudoephedrine/Triprolidine 1 combo 10/11/16 15:31 Actifed - PO TID PRN NASAL CONGESTION Quetiapine Fumarate 100 mg 10/11/16 14:00 11/06/16 13:57 Seroquel - PO 100 mg TID MARKUS Administration Current Side Effect: No Lab tests ordered: No Lab tests reviewed: Yes Provider note:: Patient will complete this program tomorrow 11/07/16.He has met his tratment goals and will continue to address his issues on outpatient basis at [facility].Patient continues to find that Seroquel 100 mg po tid help to reduce mood instability,sleeping difficulties.Script for 30 days provided. Patient identifies areas of difficulties and ways,coping skills to utillize to maintain recovery. Patient is stable for discharge tomorrow. Total face to face time:: 30 Mental Status Exam - Mental Status Exam Alert and Oriented to: Time, Place, Person Cognitive Function: Grossly Intact Patient Appearance: Well Groomed Mood: Euthymic Affect: Mood Congruent Patient Behavior: Cooperative Speech Pattern: Clear Voice Loudness: Normal Thought Process: Goal Oriented Thought Disorder: Being Controlled Hallucinations: Denies Suicidal Ideation: Denies Homicidal Ideation: Denies Insight/Judgement: Fair Appetite: Good Muscle strength/Tone: Normal Gait/Station: Normal Psychiatric Treatment Plan - Problem List (1) Schizoaffective disorder Current Visit: Yes (2) Left wrist fracture Current Visit: Yes Qualifiers: Encounter type: subsequent encounter Fracture healing: with routine healing Qualified Code(s): S62.102D - Fracture of unspecified carpal bone , left wrist, subsequent encounter for fracture with routine healing Comment: 1/2 cast + acebandage (3) PCP abuse Current Visit: Yes (4) Alcohol dependence Current Visit: Yes (5) Asthma Current Visit: Yes Qualifiers: Asthma severity: mild intermittent Asthma complication type: with status asthmaticus Qualified Code(s): J45.22 - Mild intermittent asthma with status asthmaticus Comment: last episode "years ago" (6) Cannabis dependence, uncomplicated Current Visit: Yes
[2016-11-07] MEDS: QUEtiapine FUMARATE 100 MG TABLET (FP) PO SCH (06:27)
[2016-11-07 07:49] VITALS: BP 130/85; PULSE 83; TEMP 98.2
== END 2016-11-07 07:40 | disposition home or self-care (01) | DRG 772 ==
LOC: YASAS 11:32 → Y3W 11:33
PROVIDERS: ADMIT Psychiatry & Neurology Psychiatry; ATTEND Psychiatry & Neurology Psychiatry
PROC: HZ42ZZZ Group Counseling for Substance Abuse Treatment, Cognitive-Behavioral (ICD-10-PCS; principal; 2016-11-07)
DX: F10.230 Alcohol dependence with withdrawal, uncomplicated (principal); F14.20 Cocaine dependence, uncomplicated; F12.20 Cannabis dependence, uncomplicated; F16.10 Hallucinogen abuse, uncomplicated; F25.9 Schizoaffective disorder, unspecified; F31.81 Bipolar II disorder; J45.22 Mild intermittent asthma with status asthmaticus; S62.102D Fracture of unspecified carpal bone, left wrist, subsequent encounter for fracture with routine healing; X58.XXXD Exposure to other specified factors, subsequent encounter

== ENCOUNTER 2017-03-01 09:18 | Inpatient (IN) | payer OTHER ==
[2017-03-01 10:14] VITALS: BMI 40.7
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
[2017-03-01] MEDS ORDERED: LOPERAMIDE HCL 2 MG CAPSULE PO PRN (10:35)
[2017-03-01] MEDS ORDERED: MENTHOL/PHENOL 1 EACH UD MM PRN (10:35)
[2017-03-01] MEDS ORDERED: guaiFENesin/D-METHORPHAN HB 10 ML UNIT-DOSE CUPS PO PRN (10:35)
[2017-03-01] MEDS ORDERED: ACETAMINOPHEN 325 MG TABLET (FP) PO PRN (10:35)
[2017-03-01] MEDS ORDERED: MAGNESIUM CITRATE 300 ML BOTTLE PO PRN (10:35)
[2017-03-01] MEDS ORDERED: MAGNESIUM HYDROX 2400MG/30ML ORAL SUSPENSION 30 ML CUP PO PRN (10:35)
[2017-03-01] MEDS ORDERED: MAG HYDROX/AL HYDROX/SIMETH 30 ML UNIT-DOSE CUP PO PRN (10:35)
[2017-03-01] MEDS ORDERED: chlordiazePOXIDE HCL 25 MG CAPSULE PO PRN (10:35)
[2017-03-01] MEDS ORDERED: hydrOXYzine PAMOATE 50 MG CAPSULE (FP) PO PRN (10:35)
[2017-03-01] MEDS ORDERED: P-EPHED 60MG/TRIPROLIDI 2.5MG TABLET PO PRN (10:35)
[2017-03-01] MEDS ORDERED: ALBUTEROL SO4 6.7 GM HFA INHALER IH PRN (10:37)
[2017-03-01] MEDS ORDERED: chlordiazePOXIDE HCL 25 MG CAPSULE PO ONE (11:30)
[2017-03-01] MEDS: chlordiazePOXIDE HCL 25 MG CAPSULE PO SCH ×2 (17:10→22:19)
[2017-03-01 17:48] LABS: URINE APPEARANCE CLEAR; URINE BILIRUBIN NEGATIVE (NEGATIVE); URINE BLOOD NEGATIVE (NEGATIVE); URINE COLOR LTYELLOW; URINE GLUCOSE (UA) NEGATIVE (NEGATIVE); URINE KETONE NEGATIVE (NEGATIVE); URINE LEUK ESTERASE NEGATIVE (NEGATIVE); URINE NITRITE NEGATIVE (NEGATIVE); URINE PROTEIN NEGATIVE (NEGATIVE); URINE UROBILINOGEN NEGATIVE E.U./dl (0.2-1.0)
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
[2017-03-01] MEDS: THIAMINE HCL 100 MG TABLET (FP) PO SCH (22:19)
[2017-03-01] MEDS: diphenhydrAMINE HCL 50 MG CAPSULE PO PRN (22:19)
[2017-03-01] MEDS: QUEtiapine FUMARATE 100 MG TABLET (FP) PO SCH (22:19)
[2017-03-02] MEDS: QUEtiapine FUMARATE 100 MG TABLET (FP) PO SCH ×3 (06:22→22:22)
[2017-03-02] MEDS: chlordiazePOXIDE HCL 25 MG CAPSULE PO SCH ×4 (06:22→22:22)
[2017-03-02 10:14] LABS: MCH 29.7 pg (25.7-33.7); MCHC 34.1 g/dl (32.0-35.9); MEAN CELL VOLUME 87.1 fl (80-96); MEAN PLT VOLUME 9.3 fl (7.5-11.1); PLATELET COUNT 163 K/MM3 (134-434); RDW 13.9 % (11.9-15.9); WHITE BLOOD COUNT 4.3 K/mm3 (4.0-10.0)
[2017-03-02] MEDS: PRENATAL VITAMINS W/ FOLIC ACID TABLET (FP) PO SCH (10:30)
[2017-03-02 10:35] LABS: ALBUMIN 3.4 g/dl (3.4-5.0); ALK PHOS 64 U/L (45-117); ANION GAP 9 (8-16); BILIRUBIN,TOTAL 0.7 mg/dL (0.2-1.0); CALCIUM 8.8 mg/dL (8.5-10.1); CO2 27 mmol/L (21-32); COCKROFT - GAULT 166.14; CREATININE 0.9 mg/dL (0.7-1.3); GLUCOSE,RANDOM 110 mg/dL (74-106); SGOT/AST 20 U/L (15-37); SGPT/ALT 26 U/L (12-78); TOT PROT 6.3 g/dl (6.4-8.2)
--- NOTE | 2017-03-02 11:23 | PN ---
[facility] CIWA - CIWA Score Nausea/Vomitin Muscle Tremors: 3 Anxiety: 3 Agitation: 2 Paroxysmal Sweats: 1-Minimal Palms Moist Orientation: 0-Oriented Tacttile Disturbances: 1-Very Mild Itch/Numbness Auditory Disturbances: 1-Very Mild Visual Disturbances: 1-Very Mild Sensitivity Headache: 2-Mild CIWA-Ar Total Score: 17 S Progress Note (SOAP) Subjective: ALERT,IRRITABLE,ANXIOUS,INTERRUPTED SLEEP,TREMOR Objective: 03/02/17 11:19 Vital Signs Temperature 96.9 F L 03/02/17 10:45 Pulse Rate 95 H 03/02/17 10:45 Respiratory Rate 18 03/02/17 10:45 Blood Pressure 148/86 03/02/17 10:45 O2 Sat by Pulse Oximetry (%) EKG NSR,WITH SINUS ARRHYTHMIA,INVERTE T IN V3 NO CHEST PAIN,NO SOB,NO DIZZINESS Laboratory Last Values WBC 4.3 K/mm3 (4.0-10.0) 03/02/17 08:00 RBC 4.84 M/mm3 (4.00-5.60) 03/02/17 08:00 Hgb 14.4 GM/dL (11.7-16.9) 03/02/17 08:00 Hct 42.2 % (35.4-49) 03/02/17 08:00 MCV 87.1 fl (80-96) 03/02/17 08:00 MCHC 34.1 g/dl (32.0-35.9) 03/02/17 08:00 RDW 13.9 % (11.9-15.9) 03/02/17 08:00 Plt Count 163 K/MM3 (134-434) 03/02/17 08:00 MPV 9.3 fl (7.5-11.1) 03/02/17 08:00 Sodium 142 mmol/L (136-145) 03/02/17 08:00 Potassium 3.6 mmol/L (3.5-5.1) 03/02/17 08:00 Chloride 106 mmol/L (98-107) 03/02/17 08:00 Carbon Dioxide 27 mmol/L (21-32) 03/02/17 08:00 Anion Gap 9 (8-16) 03/02/17 08:00 BUN 10 mg/dL (7-18) 03/02/17 08:00 Creatinine 0.9 mg/dL (0.7-1.3) 03/02/17 08:00 Creat Clearance w eGFR > 60 (>60) 03/02/17 08:00 Random Glucose 110 mg/dL (74-106) H 03/02/17 08:00 Calcium 8.8 mg/dL (8.5-10.1) 03/02/17 08:00 Total Bilirubin 0.7 mg/dL (0.2-1.0) 03/02/17 08:00 AST 20 U/L (15-37) 03/02/17 08:00 ALT 26 U/L (12-78) 03/02/17 08:00 Alkaline Phosphatase 64 U/L (45-117) 03/02/17 08:00 Total Protein 6.3 g/dl (6.4-8.2) L 03/02/17 08:00 Albumin 3.4 g/dl (3.4-5.0) 03/02/17 08:00 Urine Color Ltyellow 03/01/17 16:00 Urine Appearance Clear 03/01/17 16:00 Urine pH 7.0 (5.0-8.0) 03/01/17 16:00 Ur Specific [place] 1.020 (1.005-1.025) 03/01/17 16:00 Urine Protein Negative (NEGATIVE) 03/01/17 16:00 Urine Glucose (UA) Negative (NEGATIVE) 03/01/17 16:00 Urine Ketones Negative (NEGATIVE) 03/01/17 16:00 Urine Blood Negative (NEGATIVE) 03/01/17 16:00 Urine Nitrite Negative (NEGATIVE) 03/01/17 16:00 Urine Bilirubin Negative (NEGATIVE) 03/01/17 16:00 Urine Urobilinogen Negative E.U./dl (0.2-1.0) 03/01/17 16:00 Ur Leukocyte Esterase Negative (NEGATIVE) 03/01/17 16:00 03/02/17 11:21 LAB PENDING Assessment: 03/02/17 11:21 03/02/17 11:22 WITHDRAWAL SYMPTOM Plan: CONTINUE DETOX
[2017-03-02] MEDS: IBUPROFEN 400 MG TABLET (FP) PO PRN (14:37)
--- NOTE | 2017-03-02 15:45 | EKG ---
Test Reason : Blood Pressure : / mmHG Vent. Rate : 074 BPM Atrial Rate : 074 BPM P-R Int : 166 ms QRS Dur : 094 ms QT Int : 394 ms P-R-T Axes : 074 078 072 degrees QTc Int : 437 ms NORMAL SINUS RHYTHM WITH SINUS ARRHYTHMIA POOR R WAVE PROGRESSION ABNORMAL ECG WHEN COMPARED WITH ECG OF 29-JAN-2017 18:38, PREMATURE ATRIAL COMPLEXES ARE NO LONGER PRESENT Confirmed by CHUCKIE HELMS, DELILAH ([id number]) on 03/02/2017 3:45:27 PM Referred By: Confirmed By:DELILAH NOGUERA MD
[2017-03-02] MEDS: THIAMINE HCL 100 MG TABLET (FP) PO SCH (22:22)
[2017-03-02] MEDS: diphenhydrAMINE HCL 50 MG CAPSULE PO PRN (22:22)
[2017-03-03] MEDS: chlordiazePOXIDE HCL 25 MG CAPSULE PO SCH ×2 (05:34→10:09)
[2017-03-03] MEDS: QUEtiapine FUMARATE 100 MG TABLET (FP) PO SCH ×3 (05:34→22:17)
[2017-03-03] MEDS: PRENATAL VITAMINS W/ FOLIC ACID TABLET (FP) PO SCH (10:09)
--- NOTE | 2017-03-03 10:16 | PN ---
[facility] CIWA - CIWA Score Nausea/Vomitin-No Nausea/No Vomiting Muscle Tremors: 4-Moderate,w/Arms Extend Anxiety: 3 Agitation: 3 Paroxysmal Sweats: 3 Orientation: 0-Oriented Tacttile Disturbances: 0-None Auditory Disturbances: 0-None Visual Disturbances: 0-None Headache: 1-Very Mild CIWA-Ar Total Score: 14 S Progress Note (SOAP) Subjective: body aches sweats little shakes stomach ache indigestion/acid reflux interrupted sleep Objective: 03/03/17 10:12 Vital Signs Temperature 97.2 F L 03/03/17 09:59 Pulse Rate 76 03/03/17 09:59 Respiratory Rate 18 03/03/17 09:59 Blood Pressure 151/89 03/03/17 09:59 O2 Sat by Pulse Oximetry (%) Laboratory Tests 03/01/17 03/02/17 03/02/17 16:00 08:00 08:00 WBC 4.3 RBC 4.84 Hgb 14.4 Hct 42.2 MCV 87.1 MCHC 34.1 RDW 13.9 Plt Count 163 MPV 9.3 Sodium 142 Potassium 3.6 Chloride 106 Carbon Dioxide 27 Anion Gap 9 BUN 10 Creatinine 0.9 Creat Clearance w eGFR > 60 Random Glucose 110 H Calcium 8.8 Total Bilirubin 0.7 AST 20 ALT 26 Alkaline Phosphatase 64 Total Protein 6.3 L Albumin 3.4 Urine Color Ltyellow Urine Appearance Clear Urine pH 7.0 Ur Specific [place] 1.020 Urine Protein Negative Urine Glucose (UA) Negative Urine Ketones Negative Urine Blood Negative Urine Nitrite Negative Urine Bilirubin Negative Urine Urobilinogen Negative Ur Leukocyte Esterase Negative RPR Titer 03/02/17 08:00 WBC RBC Hgb Hct MCV MCHC RDW Plt Count MPV Sodium Potassium Chloride Carbon Dioxide Anion Gap BUN Creatinine Creat Clearance w eGFR Random Glucose Calcium Total Bilirubin AST ALT Alkaline Phosphatase Total Protein Albumin Urine Color Urine Appearance Urine pH Ur Specific [place] Urine Protein Urine Glucose (UA) Urine Ketones Urine Blood Urine Nitrite Urine Bilirubin Urine Urobilinogen Ur Leukocyte Esterase RPR Titer Nonreactive awake/alert ambulating no acute distress Assessment: 03/03/17 10:15 withdrawal sx Plan: continue detox increase fluids
[2017-03-03] MEDS: PANTOPRAZOLE 40 MG TABLET (FP) PO ONE ×2 (11:02→11:03)
[2017-03-03] MEDS: chlordiazePOXIDE 5 MG CAPSULE PO SCH ×2 (17:13→22:17)
[2017-03-03] MEDS: THIAMINE HCL 100 MG TABLET (FP) PO SCH (22:17)
[2017-03-03] MEDS: diphenhydrAMINE HCL 50 MG CAPSULE PO PRN (22:17)
[2017-03-04] MEDS: QUEtiapine FUMARATE 100 MG TABLET (FP) PO SCH ×3 (05:50→22:38)
[2017-03-04] MEDS: chlordiazePOXIDE 5 MG CAPSULE PO SCH ×2 (05:50→10:10)
[2017-03-04] MEDS: IBUPROFEN 400 MG TABLET (FP) PO PRN (05:52)
[2017-03-04] MEDS ORDERED: PANTOPRAZOLE 40 MG TABLET (FP) PO SCH (10:00)
[2017-03-04] MEDS: PRENATAL VITAMINS W/ FOLIC ACID TABLET (FP) PO SCH (10:10)
--- NOTE | 2017-03-04 10:35 | PN ---
[facility] Progress Note (SOAP) Subjective: sweats my stomach feels so much better Objective: 03/04/17 10:34 Vital Signs Temperature 97.7 F 03/04/17 09:51 Pulse Rate 84 03/04/17 09:51 Respiratory Rate 20 03/04/17 09:51 Blood Pressure 130/90 03/04/17 09:51 O2 Sat by Pulse Oximetry (%) awake/alert ambulating no acute distress Assessment: 03/04/17 10:34 withdrawal sx Plan: continue detox increase fluids d/c in am
[2017-03-04] MEDS: chlordiazePOXIDE HCL 10 MG CAPSULE PO SCH ×2 (17:37→22:38)
[2017-03-04] MEDS: THIAMINE HCL 100 MG TABLET (FP) PO SCH (22:38)
[2017-03-05] MEDS: chlordiazePOXIDE HCL 10 MG CAPSULE PO SCH (05:47)
[2017-03-05] MEDS: QUEtiapine FUMARATE 100 MG TABLET (FP) PO SCH (05:47)
--- NOTE | 2017-03-05 09:28 | DS ---
[facility] Detox Discharge Summary Admission Date: 03/01/17 Discharge Date: 03/05/17 - History Present History: Alcohol Dependence, Cannabis Dependence, Cocaine Dependence, Pcp Dependence - Physical Exam Results Vital Signs: Vital Signs Temperature 97.6 F 03/05/17 06:21 Pulse Rate 73 03/05/17 06:21 Respiratory Rate 18 03/05/17 06:21 Blood Pressure 165/98 03/05/17 06:21 O2 Sat by Pulse Oximetry (%) - Treatment Hospital Course: Detox Protocol Followed, Detoxed Safely, Responded well, Discharged Condition Good, Rehab Referral Accepted - Medication Discharge Medications: Ambulatory Orders Quetiapine Fumarate [Seroquel] 100 mg PO TID #90 tablet 01/30/17 Albuterol Sulfate Inhaler - [Ventolin Hfa Inhaler -] 2 inh PO Q4H PRN 03/01/17 Quetiapine Fumarate [Seroquel] 100 mg PO TID #60 tablet 03/01/17 - Diagnosis (1) Alcohol dependence with uncomplicated withdrawal Current Visit: Yes Status: Chronic (2) Cannabis dependence, uncomplicated Current Visit: Yes Status: Chronic (3) Insomnia Current Visit: Yes Status: Acute (4) Asthma Current Visit: Yes Status: Chronic Qualifiers: Asthma severity: mild intermittent Asthma complication type: with status asthmaticus Qualified Code(s): J45.22 - Mild intermittent asthma with status asthmaticus (5) Chronic back pain Current Visit: Yes Status: Chronic Qualifiers: Back pain location: low back pain Back pain laterality: bilateral Sciatica presence: without sciatica Qualified Code(s): M54.5 - Low back pain; G89.29 - Other chronic pain (6) GERD (gastroesophageal reflux disease) Current Visit: Yes Status: Chronic Qualifiers: Esophagitis presence: without esophagitis Qualified Code(s): K21.9 - Gastro-esophageal reflux disease without esophagitis (7) Schizoaffective disorder, bipolar type Current Visit: Yes Status: Chronic (8) Cocaine dependence, uncomplicated Current Visit: No Status: Chronic (9) Schizoaffective disorder Current Visit: No Status: Chronic (10) Bipolar II disorder Current Visit: No Status: Suspected - AMA Did Patient Leave Against Medical Advice: No
[2017-03-05] MEDS ORDERED: amLODIPine BESYLATE 5 MG TABLET (FP) PO ONE (09:53)
[2017-03-05 09:55] VITALS: BP 163/93; PULSE 97; TEMP 97
== END 2017-03-05 10:20 | disposition home or self-care (01) | DRG 774 ==
LOC: YASAS 09:18 → Y6N 11:16
PROVIDERS: ADMIT Internal Medicine; ATTEND Internal Medicine
PROC: HZ2ZZZZ Detoxification Services for Substance Abuse Treatment (ICD-10-PCS; principal; 2017-03-01)
DX: F10.230 Alcohol dependence with withdrawal, uncomplicated (principal); F14.20 Cocaine dependence, uncomplicated; F12.20 Cannabis dependence, uncomplicated; F25.0 Schizoaffective disorder, bipolar type; F31.81 Bipolar II disorder; J45.22 Mild intermittent asthma with status asthmaticus; M54.5 Low back pain; G89.29 Other chronic pain; K21.9 Gastro-esophageal reflux disease without esophagitis; I49.9 Cardiac arrhythmia, unspecified; E66.9 Obesity, unspecified; Z68.41 Body mass index [BMI] 40.0-44.9, adult; G47.00 Insomnia, unspecified; Z87.891 Personal history of nicotine dependence
CPT/HCPCS: 36415; 80053; 81003; 85027; 86593; 93005; 93010

== ENCOUNTER 2017-04-01 08:31 | Inpatient (IN) | payer OTHER ==
[2017-04-01 09:30] VITALS: BMI 42.2
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
[2017-04-01] MEDS ORDERED: LOPERAMIDE HCL 2 MG CAPSULE PO PRN (10:02)
[2017-04-01] MEDS ORDERED: MAGNESIUM HYDROX 2400MG/30ML ORAL SUSPENSION 30 ML CUP PO PRN (10:02)
[2017-04-01] MEDS ORDERED: IBUPROFEN 400 MG TABLET (FP) PO PRN (10:02)
[2017-04-01] MEDS ORDERED: hydrOXYzine PAMOATE 50 MG CAPSULE (FP) PO PRN (10:02)
[2017-04-01] MEDS ORDERED: MAG HYDROX/AL HYDROX/SIMETH 30 ML UNIT-DOSE CUP PO PRN (10:02)
[2017-04-01] MEDS ORDERED: MAGNESIUM CITRATE 300 ML BOTTLE PO PRN (10:02)
[2017-04-01] MEDS ORDERED: MENTHOL/PHENOL 1 EACH UD MM PRN (10:02)
[2017-04-01] MEDS ORDERED: guaiFENesin/D-METHORPHAN HB 10 ML UNIT-DOSE CUPS PO PRN (10:02)
[2017-04-01] MEDS ORDERED: P-EPHED 60MG/TRIPROLIDI 2.5MG TABLET PO PRN (10:02)
[2017-04-01] MEDS ORDERED: ACETAMINOPHEN 325 MG TABLET (FP) PO PRN (10:02)
[2017-04-01] MEDS ORDERED: diphenhydrAMINE HCL 50 MG CAPSULE PO PRN (10:02)
[2017-04-01] MEDS ORDERED: ALBUTEROL SO4 6.7 GM HFA INHALER IH PRN (10:04)
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
[2017-04-01] MEDS: QUEtiapine FUMARATE 100 MG TABLET (FP) PO SCH ×2 (14:03→21:26)
[2017-04-01 16:07] LABS: MCH 29.3 pg (25.7-33.7); MCHC 33.8 g/dl (32.0-35.9); MEAN CELL VOLUME 86.7 fl (80-96); MEAN PLT VOLUME 9.4 fl (7.5-11.1); PLATELET COUNT 200 K/MM3 (134-434); RDW 13.9 % (11.9-15.9); WHITE BLOOD COUNT 5.7 K/mm3 (4.0-10.0)
[2017-04-01 16:52] LABS: ALBUMIN 3.9 g/dl (3.4-5.0); ANION GAP 8 (8-16); CO2 28 mmol/L (21-32); GLUCOSE,RANDOM 75 mg/dL (74-106)
[2017-04-01 16:58] LABS: ALK PHOS 79 U/L (45-117); BILIRUBIN,TOTAL 0.8 mg/dL (0.2-1.0); CREATININE 0.9 mg/dL (0.7-1.3); SGOT/AST 30 U/L (15-37); SGPT/ALT 41 U/L (12-78)
[2017-04-01] MEDS: THIAMINE HCL 100 MG TABLET (FP) PO SCH (21:26)
[2017-04-01 22:58] LABS: URINE APPEARANCE CLEAR; URINE BILIRUBIN NEGATIVE (NEGATIVE); URINE BLOOD NEGATIVE (NEGATIVE); URINE COLOR LTYELLOW; URINE GLUCOSE (UA) NEGATIVE (NEGATIVE); URINE KETONE NEGATIVE (NEGATIVE); URINE LEUK ESTERASE NEGATIVE (NEGATIVE); URINE NITRITE NEGATIVE (NEGATIVE); URINE PROTEIN NEGATIVE (NEGATIVE); URINE UROBILINOGEN NEGATIVE E.U./dl (0.2-1.0)
[2017-04-02] MEDS: QUEtiapine FUMARATE 100 MG TABLET (FP) PO SCH ×3 (06:12→21:09)
[2017-04-02] MEDS ORDERED: PRENATAL VITAMINS W/ FOLIC ACID TABLET (FP) PO SCH (10:00)
[2017-04-02] MEDS ORDERED: PANTOPRAZOLE 40 MG TABLET (FP) PO SCH (10:00)
[2017-04-02] MEDS ORDERED: FUROSEMIDE 40 MG TABLET (FP) PO SCH (10:00)
[2017-04-02] MEDS: THIAMINE HCL 100 MG TABLET (FP) PO SCH (21:09)
[2017-04-03] MEDS: PANTOPRAZOLE 40 MG TABLET (FP) PO SCH (06:31)
[2017-04-03] MEDS: FUROSEMIDE 40 MG TABLET (FP) PO SCH (06:31)
[2017-04-03] MEDS: QUEtiapine FUMARATE 100 MG TABLET (FP) PO SCH ×3 (06:31→21:07)
[2017-04-03] MEDS: PRENATAL VITAMINS W/ FOLIC ACID TABLET (FP) PO SCH (06:31)
--- NOTE | 2017-04-03 16:05 | EKG ---
Test Reason : Blood Pressure : / mmHG Vent. Rate : 075 BPM Atrial Rate : 075 BPM P-R Int : 174 ms QRS Dur : 092 ms QT Int : 400 ms P-R-T Axes : 072 065 060 degrees QTc Int : 446 ms NORMAL SINUS RHYTHM NORMAL ECG WHEN COMPARED WITH ECG OF 01-MAR-2017 12:24, NO SIGNIFICANT CHANGE WAS FOUND Confirmed by ALVARADO ROMERO MD ([id number]) on 04/03/2017 4:05:27 PM Referred By: Confirmed By:ALVARADO ROMERO MD
[2017-04-03] MEDS: THIAMINE HCL 100 MG TABLET (FP) PO SCH (21:07)
[2017-04-04] MEDS: PANTOPRAZOLE 40 MG TABLET (FP) PO SCH (06:18)
[2017-04-04] MEDS: FUROSEMIDE 40 MG TABLET (FP) PO SCH (06:19)
[2017-04-04] MEDS: QUEtiapine FUMARATE 100 MG TABLET (FP) PO SCH ×3 (06:19→21:36)
[2017-04-04] MEDS: PRENATAL VITAMINS W/ FOLIC ACID TABLET (FP) PO SCH (06:19)
[2017-04-04] MEDS: THIAMINE HCL 100 MG TABLET (FP) PO SCH (21:36)
[2017-04-05] MEDS: QUEtiapine FUMARATE 100 MG TABLET (FP) PO SCH ×3 (06:13→21:13)
[2017-04-05] MEDS: PANTOPRAZOLE 40 MG TABLET (FP) PO SCH (06:13)
[2017-04-05] MEDS: PRENATAL VITAMINS W/ FOLIC ACID TABLET (FP) PO SCH (06:13)
[2017-04-05] MEDS: THIAMINE HCL 100 MG TABLET (FP) PO SCH (21:13)
[2017-04-06] MEDS: PANTOPRAZOLE 40 MG TABLET (FP) PO SCH (06:21)
[2017-04-06] MEDS: QUEtiapine FUMARATE 100 MG TABLET (FP) PO SCH ×3 (06:21→21:27)
[2017-04-06] MEDS: PRENATAL VITAMINS W/ FOLIC ACID TABLET (FP) PO SCH (06:21)
[2017-04-06] MEDS: THIAMINE HCL 100 MG TABLET (FP) PO SCH (21:27)
[2017-04-07] MEDS: PRENATAL VITAMINS W/ FOLIC ACID TABLET (FP) PO SCH (06:02)
[2017-04-07] MEDS: PANTOPRAZOLE 40 MG TABLET (FP) PO SCH (06:02)
[2017-04-07] MEDS: QUEtiapine FUMARATE 100 MG TABLET (FP) PO SCH (06:02)
[2017-04-07 06:36] VITALS: BP 136/81; PULSE 79; TEMP 98.3
--- NOTE | 2017-04-07 10:34 | PN ---
Psychiatric Progress Note Vital Signs: Vital Signs Period Temp Pulse Resp BP Sys/Dominguez Pulse Ox Last 24 Hr 98.3 F 79 16-18 136/81 Date of Session: 04/07/17 Chief Complaint:: "I am leaving AMA" HPI: Patient is a 56 year old male who was admitted on 04/01/17 for alcohol, cannabis dependence, PCP abuse comorbid Bipolar disorder and PTSD.He has decided to leave the program after six days of treatment. ROS: Asthma, GERD medically managed. Current Medications: Active Medications Generic Name Dose Route Start Last Admin Trade Name Freq PRN Reason Stop Dose Admin Acetaminophen 650 mg 04/01/17 10:02 Tylenol - PO Q4H PRN PAIN Al Hydroxide/Mg Hydroxide 30 ml 04/01/17 10:02 04/01/17 14:35 Mylanta Oral Suspension - PO 30 ml Q6H PRN Administration DYSPEPSIA Albuterol Sulfate 2 puff 04/01/17 10:04 Ventolin Hfa Inhaler - IH Q4H PRN ASTHMA Diphenhydramine HCl 50 mg 04/01/17 10:02 Benadryl - PO HSMR1 PRN INSOMNIA Eucalyptus/Menthol/Phenol/Sorbitol 1 each 04/01/17 10:02 Cepastat Lozenge - MM Q4H PRN SORE THROAT Guaifenesin 10 ml 04/01/17 10:02 Robitussin Dm - PO Q6H PRN COUGH Hydroxyzine Pamoate 50 mg 04/01/17 10:02 04/02/17 09:47 Vistaril - PO 50 mg Q4H PRN Administration AGITATION Ibuprofen 400 mg 04/01/17 10:02 Motrin - PO Q6H PRN SEVERE PAIN Loperamide HCl 4 mg 04/01/17 10:02 Imodium - PO Q6H PRN DIARRHEA Magnesium Citrate 300 ml 04/01/17 10:02 Citroma - PO Q48H PRN CONSTIPATION Magnesium Hydroxide 30 ml 04/01/17 10:02 Milk Of Magnesia - PO DAILY PRN CONSTIPATION Pantoprazole Sodium 40 mg 04/03/17 06:00 04/07/17 06:02 Protonix - PO 40 mg DAILY@0600 MARKUS Administration Multivit/Folic Acid/Iron 1 tab 04/03/17 06:00 04/07/17 06:02 Vitamins (Sjr) - PO 1 tab DAILY@0600 MARKUS Administration Pseudoephedrine/Triprolidine 1 combo 04/01/17 10:02 Actifed - PO TID PRN NASAL CONGESTION Quetiapine Fumarate 100 mg 04/01/17 14:00 04/07/17 06:02 Seroquel - PO 100 mg TID MARKUS Administration Thiamine HCl 100 mg 04/01/17 22:00 04/06/17 21:27 Vitamin B1 - PO 100 mg HS MARKUS Administration Current Side Effect: No Lab tests ordered: No Lab tests reviewed: Yes Provider note:: Met with the patient to process his decision of leving treatment at this time. Patient reports he does not want to continue treatment because "it's summer time and I want to sweam". Patient was encouraged to stay and focus on recovery but he declines to reconsider, he reports that a less restrictive therapuetic milieu will be more suitable for his needs at his time. Mental statrus is unremarkable, see MSE report. Patient is stable and is at his baseline. Medication (Seroquel) is reviewed and discussed with the patient. He currently on Seroquel 100 mg po tid, side-effects and benefits revisited with the patient, he reports a favorable response and good tolerability to Seroquel, he states he will continue the same regime and keep his appointments at [facility]. Script for Seroquel 100 mg po tid 90 pills electronically submitted to [facility]. Total face to face time:: 35 Mental Status Exam - Mental Status Exam Alert and Oriented to: Time, Place, Person Cognitive Function: Good Patient Appearance: Well Groomed Mood: Hopeful Affect: Appropriate, Mood Congruent Patient Behavior: Appropriate, Cooperative Speech Pattern: Clear, Appropriate Voice Loudness: Normal Thought Process: Intact, Goal Oriented Thought Disorder: Not Present Hallucinations: Denies Suicidal Ideation: Denies Homicidal Ideation: Denies Insight/Judgement: Fair Sleep: Fair Appetite: Fair Muscle strength/Tone: Normal Gait/Station: Normal Psychiatric Treatment Plan - Problem List (1) Alcohol dependence Current Visit: Yes (2) Cannabis dependence Current Visit: Yes (3) PCP abuse Current Visit: Yes (4) Asthma Current Visit: No Qualifiers: Asthma severity: mild intermittent Asthma complication type: with status asthmaticus Qualified Code(s): J45.22 - Mild intermittent asthma with status asthmaticus Comment: last episode "years ago" (5) Bipolar I disorder, most recent episode mixed Current Visit: Yes (6) PTSD (post-traumatic stress disorder) Current Visit: Yes
== END 2017-04-07 10:30 | disposition left against medical advice (07) | DRG 770 ==
LOC: YASAS 08:31 → Y5N 10:14
PROVIDERS: ADMIT Psychiatry & Neurology Psychiatry; ATTEND Psychiatry & Neurology Psychiatry
PROC: HZ42ZZZ Group Counseling for Substance Abuse Treatment, Cognitive-Behavioral (ICD-10-PCS; principal; 2017-04-07)
DX: F10.20 Alcohol dependence, uncomplicated (principal); F12.20 Cannabis dependence, uncomplicated; F16.10 Hallucinogen abuse, uncomplicated; F31.89 Other bipolar disorder; F43.10 Post-traumatic stress disorder, unspecified; J45.22 Mild intermittent asthma with status asthmaticus
CPT/HCPCS: 36415; 80053; 81003; 85027; 86593; 93005; 93010

== ENCOUNTER 2017-05-16 09:24 | Inpatient (IN) | payer OTHER ==
[2017-05-16 09:40] VITALS: BMI 43.5
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
[2017-05-16] MEDS ORDERED: IBUPROFEN 400 MG TABLET (FP) PO PRN (13:21)
[2017-05-16] MEDS ORDERED: chlordiazePOXIDE HCL 25 MG CAPSULE PO PRN (13:21)
[2017-05-16] MEDS ORDERED: MENTHOL/PHENOL 1 EACH UD MM PRN (13:21)
[2017-05-16] MEDS ORDERED: ACETAMINOPHEN 325 MG TABLET (FP) PO PRN (13:21)
[2017-05-16] MEDS ORDERED: LOPERAMIDE HCL 2 MG CAPSULE PO PRN (13:21)
[2017-05-16] MEDS ORDERED: diphenhydrAMINE HCL 50 MG CAPSULE PO PRN (13:21)
[2017-05-16] MEDS ORDERED: MAGNESIUM CITRATE 300 ML BOTTLE PO PRN (13:21)
[2017-05-16] MEDS ORDERED: P-EPHED 60MG/TRIPROLIDI 2.5MG TABLET PO PRN (13:21)
[2017-05-16] MEDS ORDERED: MAG HYDROX/AL HYDROX/SIMETH 30 ML UNIT-DOSE CUP PO PRN (13:21)
[2017-05-16] MEDS ORDERED: guaiFENesin/D-METHORPHAN HB 10 ML UNIT-DOSE CUPS PO PRN (13:21)
[2017-05-16] MEDS ORDERED: hydrOXYzine PAMOATE 25 MG CAPSULE (FP) PO PRN (13:21)
[2017-05-16] MEDS ORDERED: MAGNESIUM HYDROX 2400MG/30ML ORAL SUSPENSION 30 ML CUP PO PRN (13:21)
[2017-05-16] MEDS: chlordiazePOXIDE HCL 25 MG CAPSULE PO SCH ×2 (17:44→22:14)
[2017-05-16 18:19] LABS: URINE APPEARANCE CLEAR; URINE BILIRUBIN NEGATIVE (NEGATIVE); URINE BLOOD NEGATIVE (NEGATIVE); URINE COLOR STRAW; URINE GLUCOSE (UA) NEGATIVE (NEGATIVE); URINE KETONE NEGATIVE (NEGATIVE); URINE LEUK ESTERASE NEGATIVE (NEGATIVE); URINE NITRITE NEGATIVE (NEGATIVE); URINE PROTEIN NEGATIVE (NEGATIVE); URINE UROBILINOGEN NEGATIVE mg/dL (0.2-1.0)
[2017-05-16] MEDS: THIAMINE HCL 100 MG TABLET (FP) PO SCH (22:14)
[2017-05-16] MEDS: CLARITHROMYCIN 500 MG TABLET (UD) PO SCH (22:15)
[2017-05-16] MEDS: AMOXICILLIN 500 MG CAPSULE (FP) PO SCH (22:15)
[2017-05-17] MEDS: chlordiazePOXIDE HCL 25 MG CAPSULE PO SCH ×4 (06:03→22:18)
[2017-05-17] MEDS: AMOXICILLIN 500 MG CAPSULE (FP) PO SCH ×2 (10:04→22:19)
[2017-05-17] MEDS: PRENATAL VITAMINS W/ FOLIC ACID TABLET (FP) PO SCH (10:04)
[2017-05-17] MEDS: CLARITHROMYCIN 500 MG TABLET (UD) PO SCH ×2 (10:04→22:18)
[2017-05-17 10:36] LABS: MCH 28.9 pg (25.7-33.7); MCHC 33.5 g/dl (32.0-35.9); MEAN CELL VOLUME 86.2 fl (80-96); MEAN PLT VOLUME 9.9 fl (7.5-11.1); PLATELET COUNT 193 K/MM3 (134-434); RDW 13.6 % (11.9-15.9); WHITE BLOOD COUNT 4.9 K/mm3 (4.0-10.0)
[2017-05-17 10:48] LABS: ALBUMIN 3.7 g/dl (3.4-5.0); ANION GAP 7 (8-16); CALCIUM 7.3 mg/dL (8.5-10.1); CO2 28 mmol/L (21-32); GLUCOSE,RANDOM 113 mg/dL (74-106); SGOT/AST 23 U/L (15-37); SGPT/ALT 30 U/L (12-78)
[2017-05-17 10:50] LABS: ALK PHOS 73 U/L (45-117); BILIRUBIN,TOTAL 0.5 mg/dL (0.2-1.0); TOT PROT 6.7 g/dl (6.4-8.2)
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
--- NOTE | 2017-05-17 19:02 | PN ---
S CIWA - CIWA Score Nausea/Vomitin Muscle Tremors: 4-Moderate,w/Arms Extend Anxiety: 4-Mod. Anxious/Guarded Agitation: 2 Paroxysmal Sweats: 3 Orientation: 0-Oriented Tacttile Disturbances: 0-None Auditory Disturbances: 2-Mild Harshness/Frighten Visual Disturbances: 2-Mild Sensitivity Headache: 0-None Present CIWA-Ar Total Score: 19 BHS Progress Note (SOAP) Subjective: Body Aches, Tremors, Stomach Cramping, Diarrhea, Anxious. Objective: PT. A & O X 3, OBSERVED AMBULATING ON UNIT. NO ACUTE DISTRESS. PT. DENIES CHEST PAIN. 05/17/17 19:04 Vital Signs Temperature 98.0 F 05/17/17 18:19 Pulse Rate 64 05/17/17 18:19 Respiratory Rate 19 05/17/17 18:19 Blood Pressure 113/66 05/17/17 18:19 O2 Sat by Pulse Oximetry (%) Laboratory Tests 05/16/17 05/17/17 05/17/17 17:50 06:10 06:10 WBC 4.9 RBC 5.09 Hgb 14.7 Hct 43.9 MCV 86.2 MCH 28.9 MCHC 33.5 RDW 13.6 Plt Count 193 MPV 9.9 Sodium 142 Potassium 3.9 Chloride 107 Carbon Dioxide 28 Anion Gap 7 L BUN 14 Creatinine 1.0 Creat Clearance w eGFR > 60 Random Glucose 113 H D Calcium 7.3 L Total Bilirubin 0.5 D AST 23 D ALT 30 D Alkaline Phosphatase 73 Total Protein 6.7 Albumin 3.7 Urine Color Straw Urine Appearance Clear Urine pH 7.0 D Ur Specific [place] 1.020 Urine Protein Negative Urine Glucose (UA) Negative Urine Ketones Negative Urine Blood Negative Urine Nitrite Negative Urine Bilirubin Negative Urine Urobilinogen Negative Ur Leukocyte Esterase Negative RPR Titer 05/17/17 06:10 WBC RBC Hgb Hct MCV MCH MCHC RDW Plt Count MPV Sodium Potassium Chloride Carbon Dioxide Anion Gap BUN Creatinine Creat Clearance w eGFR Random Glucose Calcium Total Bilirubin AST ALT Alkaline Phosphatase Total Protein Albumin Urine Color Urine Appearance Urine pH Ur Specific [place] Urine Protein Urine Glucose (UA) Urine Ketones Urine Blood Urine Nitrite Urine Bilirubin Urine Urobilinogen Ur Leukocyte Esterase RPR Titer Nonreactive LABS NOTED. Assessment: 05/17/17 19:05 WITHDRAWAL SYMPTOMS. Plan: CONTINUE DETOX. PRN IMMODIUM FOR DIARRHEA.
[2017-05-17] MEDS: QUEtiapine FUMARATE 100 MG TABLET (FP) PO SCH (22:18)
[2017-05-17] MEDS: THIAMINE HCL 100 MG TABLET (FP) PO SCH (22:18)
[2017-05-18] MEDS: chlordiazePOXIDE HCL 25 MG CAPSULE PO SCH ×2 (05:54→10:09)
[2017-05-18] MEDS: AMOXICILLIN 500 MG CAPSULE (FP) PO SCH ×2 (10:08→22:06)
[2017-05-18] MEDS: CLARITHROMYCIN 500 MG TABLET (UD) PO SCH ×2 (10:09→22:06)
[2017-05-18] MEDS: PRENATAL VITAMINS W/ FOLIC ACID TABLET (FP) PO SCH (10:09)
--- NOTE | 2017-05-18 17:21 | PN ---
S CIWA - CIWA Score Nausea/Vomitin Muscle Tremors: 4-Moderate,w/Arms Extend Anxiety: 4-Mod. Anxious/Guarded Agitation: 4-Moderately Restless Paroxysmal Sweats: 3 Orientation: 0-Oriented Tacttile Disturbances: 1-Very Mild Itch/Numbness Auditory Disturbances: 0-None Visual Disturbances: 0-None Headache: 2-Mild CIWA-Ar Total Score: 21 BHS Progress Note (SOAP) Subjective: Sweating, nausea, anxious, restless, interrupted sleep Objective: 05/18/17 17:20 Last Vital Signs Temp Pulse Resp BP Pulse Ox 97.7 F 74 18 155/93 05/18/17 14:11 05/18/17 14:11 05/18/17 14:11 05/18/17 14:11 Laboratory Tests 05/16/17 05/17/17 05/17/17 17:50 06:10 06:10 WBC 4.9 RBC 5.09 Hgb 14.7 Hct 43.9 MCV 86.2 MCH 28.9 MCHC 33.5 RDW 13.6 Plt Count 193 MPV 9.9 Sodium 142 Potassium 3.9 Chloride 107 Carbon Dioxide 28 Anion Gap 7 L BUN 14 Creatinine 1.0 Creat Clearance w eGFR > 60 Random Glucose 113 H D Calcium 7.3 L Total Bilirubin 0.5 D AST 23 D ALT 30 D Alkaline Phosphatase 73 Total Protein 6.7 Albumin 3.7 Urine Color Straw Urine Appearance Clear Urine pH 7.0 D Ur Specific [place] 1.020 Urine Protein Negative Urine Glucose (UA) Negative Urine Ketones Negative Urine Blood Negative Urine Nitrite Negative Urine Bilirubin Negative Urine Urobilinogen Negative Ur Leukocyte Esterase Negative RPR Titer 05/17/17 06:10 WBC RBC Hgb Hct MCV MCH MCHC RDW Plt Count MPV Sodium Potassium Chloride Carbon Dioxide Anion Gap BUN Creatinine Creat Clearance w eGFR Random Glucose Calcium Total Bilirubin AST ALT Alkaline Phosphatase Total Protein Albumin Urine Color Urine Appearance Urine pH Ur Specific [place] Urine Protein Urine Glucose (UA) Urine Ketones Urine Blood Urine Nitrite Urine Bilirubin Urine Urobilinogen Ur Leukocyte Esterase RPR Titer Nonreactive Labs noted Assessment: 05/18/17 17:21 Withdrawal symptoms Plan: Continue detox
[2017-05-18] MEDS: chlordiazePOXIDE 5 MG CAPSULE PO SCH ×2 (17:41→22:06)
[2017-05-18] MEDS: THIAMINE HCL 100 MG TABLET (FP) PO SCH (22:06)
[2017-05-18] MEDS: QUEtiapine FUMARATE 100 MG TABLET (FP) PO SCH (22:06)
--- NOTE | 2017-05-18 22:37 | EKG ---
Test Reason : Blood Pressure : / mmHG Vent. Rate : 076 BPM Atrial Rate : 076 BPM P-R Int : 160 ms QRS Dur : 102 ms QT Int : 390 ms P-R-T Axes : 069 068 056 degrees QTc Int : 438 ms NORMAL SINUS RHYTHM NORMAL ECG WHEN COMPARED WITH ECG OF 01-APR-2017 15:36, NO SIGNIFICANT CHANGE WAS FOUND Confirmed by DANDY TAYLOR MD ([id number]) on 05/18/2017 10:37:25 PM Referred By: Donnie Coe Confirmed By:DANDY TAYLOR MD
[2017-05-19] MEDS: chlordiazePOXIDE 5 MG CAPSULE PO SCH ×2 (05:55→10:03)
--- NOTE | 2017-05-19 08:37 | PN ---
S Progress Note (SOAP) Subjective: nausea, sweats, interrupted sleep , anxiety, tremors, HO[place], numbness and tingling fingers and toes Objective: 05/19/17 08:35 Laboratory Tests 05/16/17 05/17/17 05/17/17 17:50 06:10 06:10 WBC 4.9 RBC 5.09 Hgb 14.7 Hct 43.9 MCV 86.2 MCH 28.9 MCHC 33.5 RDW 13.6 Plt Count 193 MPV 9.9 Sodium 142 Potassium 3.9 Chloride 107 Carbon Dioxide 28 Anion Gap 7 L BUN 14 Creatinine 1.0 Creat Clearance w eGFR > 60 Random Glucose 113 H D Calcium 7.3 L Total Bilirubin 0.5 D AST 23 D ALT 30 D Alkaline Phosphatase 73 Total Protein 6.7 Albumin 3.7 Urine Color Straw Urine Appearance Clear Urine pH 7.0 D Ur Specific [place] 1.020 Urine Protein Negative Urine Glucose (UA) Negative Urine Ketones Negative Urine Blood Negative Urine Nitrite Negative Urine Bilirubin Negative Urine Urobilinogen Negative Ur Leukocyte Esterase Negative RPR Titer 05/17/17 06:10 WBC RBC Hgb Hct MCV MCH MCHC RDW Plt Count MPV Sodium Potassium Chloride Carbon Dioxide Anion Gap BUN Creatinine Creat Clearance w eGFR Random Glucose Calcium Total Bilirubin AST ALT Alkaline Phosphatase Total Protein Albumin Urine Color Urine Appearance Urine pH Ur Specific [place] Urine Protein Urine Glucose (UA) Urine Ketones Urine Blood Urine Nitrite Urine Bilirubin Urine Urobilinogen Ur Leukocyte Esterase RPR Titer Nonreactive labs reviewed Assessment: 05/19/17 08:35 [email or web address] sx 05/19/17 08:36 Plan: cont detox, fluids, encourage ambulation, review in AM to see if ready for discharge, may require 24 hour observation period off medications.
[2017-05-19] MEDS: CLARITHROMYCIN 500 MG TABLET (UD) PO SCH ×2 (10:03→22:16)
[2017-05-19] MEDS: AMOXICILLIN 500 MG CAPSULE (FP) PO SCH ×2 (10:03→22:15)
[2017-05-19] MEDS: PRENATAL VITAMINS W/ FOLIC ACID TABLET (FP) PO SCH (10:03)
[2017-05-19] MEDS: chlordiazePOXIDE HCL 10 MG CAPSULE PO SCH ×2 (17:19→22:15)
[2017-05-19] MEDS: THIAMINE HCL 100 MG TABLET (FP) PO SCH (22:14)
[2017-05-19] MEDS: QUEtiapine FUMARATE 100 MG TABLET (FP) PO SCH (22:15)
[2017-05-20] MEDS: chlordiazePOXIDE HCL 10 MG CAPSULE PO SCH ×2 (05:33→10:05)
--- NOTE | 2017-05-20 08:48 | DS ---
[facility] Detox Discharge Summary Admission Date: 05/16/17 Discharge Date: 05/20/17 - History Present History: Alcohol Dependence, Cannabis Dependence, Cocaine Dependence Additional Comments: DETOX COMPLETED. ALERT O X 3. NAD. PT INSTRUCTED TO FOLLOW UP WITH [facility] FOR MEDICAL MANAGEMENT. PT REMINDED TO COMPLETE THE CURRENT TREATMENT FOR H. PYLORI INFECTION. Pertinent Past History: ASTHMA H.PYLORI DEPRESSION - Physical Exam Results Vital Signs: Vital Signs Temperature 97 F L 05/20/17 06:33 Pulse Rate 77 05/20/17 06:33 Respiratory Rate 18 05/20/17 06:33 Blood Pressure 151/87 05/20/17 06:33 O2 Sat by Pulse Oximetry (%) Pertinent Admission Physical Exam Findings: WITHDRAWAL SX Laboratory Last Values WBC 4.9 K/mm3 (4.0-10.0) 05/17/17 06:10 RBC 5.09 M/mm3 (4.00-5.60) 05/17/17 06:10 Hgb 14.7 GM/dL (11.7-16.9) 05/17/17 06:10 Hct 43.9 % (35.4-49) 05/17/17 06:10 MCV 86.2 fl (80-96) 05/17/17 06:10 MCH 28.9 pg (25.7-33.7) 05/17/17 06:10 MCHC 33.5 g/dl (32.0-35.9) 05/17/17 06:10 RDW 13.6 % (11.9-15.9) 05/17/17 06:10 Plt Count 193 K/MM3 (134-434) 05/17/17 06:10 MPV 9.9 fl (7.5-11.1) 05/17/17 06:10 Sodium 142 mmol/L (136-145) 05/17/17 06:10 Potassium 3.9 mmol/L (3.5-5.1) 05/17/17 06:10 Chloride 107 mmol/L (98-107) 05/17/17 06:10 Carbon Dioxide 28 mmol/L (21-32) 05/17/17 06:10 Anion Gap 7 (8-16) L 05/17/17 06:10 BUN 14 mg/dL (7-18) 05/17/17 06:10 Creatinine 1.0 mg/dL (0.7-1.3) 05/17/17 06:10 Creat Clearance w eGFR > 60 (>60) 05/17/17 06:10 Random Glucose 113 mg/dL (74-106) H D 05/17/17 06:10 Calcium 7.3 mg/dL (8.5-10.1) L 05/17/17 06:10 Total Bilirubin 0.5 mg/dL (0.2-1.0) D 05/17/17 06:10 AST 23 U/L (15-37) D 05/17/17 06:10 ALT 30 U/L (12-78) D 05/17/17 06:10 Alkaline Phosphatase 73 U/L (45-117) 05/17/17 06:10 Total Protein 6.7 g/dl (6.4-8.2) 05/17/17 06:10 Albumin 3.7 g/dl (3.4-5.0) 05/17/17 06:10 Urine Color Straw 05/16/17 17:50 Urine Appearance Clear 05/16/17 17:50 Urine pH 7.0 (5.0-8.0) D 05/16/17 17:50 Ur Specific [place] 1.020 (1.005-1.025) 05/16/17 17:50 Urine Protein Negative (NEGATIVE) 05/16/17 17:50 Urine Glucose (UA) Negative (NEGATIVE) 05/16/17 17:50 Urine Ketones Negative (NEGATIVE) 05/16/17 17:50 Urine Blood Negative (NEGATIVE) 05/16/17 17:50 Urine Nitrite Negative (NEGATIVE) 05/16/17 17:50 Urine Bilirubin Negative (NEGATIVE) 05/16/17 17:50 Urine Urobilinogen Negative mg/dL (0.2-1.0) 05/16/17 17:50 Ur Leukocyte Esterase Negative (NEGATIVE) 05/16/17 17:50 RPR Titer Nonreactive (NONREACTIVE) 05/17/17 06:10 - Treatment Hospital Course: Detox Protocol Followed, Detoxed Safely, Responded well, Discharged Condition Good - Medication Discharge Medications: Ambulatory Orders Albuterol Sulfate Inhaler - [Ventolin HFA Inhaler -] 2 inh PO Q4H PRN #1 inh Quetiapine Fumarate [Seroquel] 100 mg PO TID #90 tablet 04/07/17 Amoxicillin - [Amoxicillin 500mg Capsule -] 1,000 mg PO BID 05/16/17 Clarithromycin [Biaxin -] 500 mg PO BID 05/16/17 Quetiapine Fumarate [Seroquel] 100 mg PO HS #30 tablet 05/17/17 - Diagnosis (1) Alcohol dependence with uncomplicated withdrawal Current Visit: Yes Status: Acute (2) Asthma Current Visit: Yes Status: Chronic Qualifiers: Asthma severity: mild intermittent Asthma complication type: with status asthmaticus Qualified Code(s): J45.22 - Mild intermittent asthma with status asthmaticus (3) GERD (gastroesophageal reflux disease) Current Visit: Yes Status: Chronic Qualifiers: Esophagitis presence: without esophagitis Qualified Code(s): K21.9 - Gastro-esophageal reflux disease without esophagitis (4) Insomnia Current Visit: Yes Status: Acute (5) Cannabis dependence, uncomplicated Current Visit: Yes Status: Acute (6) Obesity Current Visit: Yes Status: Chronic (7) Schizoaffective disorder Current Visit: Yes Status: Chronic (8) Helicobacter pylori (H. pylori) infection Current Visit: Yes Status: Acute - AMA Did Patient Leave Against Medical Advice: No
[2017-05-20 09:28] VITALS: BP 143/85; PULSE 87; TEMP 97.8
[2017-05-20] MEDS: CLARITHROMYCIN 500 MG TABLET (UD) PO SCH (10:04)
[2017-05-20] MEDS: AMOXICILLIN 500 MG CAPSULE (FP) PO SCH (10:04)
[2017-05-20] MEDS: PRENATAL VITAMINS W/ FOLIC ACID TABLET (FP) PO SCH (10:04)
== END 2017-05-20 09:30 | disposition home or self-care (01) | DRG 775 ==
LOC: YASAS 09:24 → Y3N 12:54
PROVIDERS: ADMIT Internal Medicine Addiction Medicine; ATTEND Internal Medicine Addiction Medicine
PROC: HZ2ZZZZ Detoxification Services for Substance Abuse Treatment (ICD-10-PCS; principal; 2017-05-16)
DX: F10.230 Alcohol dependence with withdrawal, uncomplicated (principal); F12.20 Cannabis dependence, uncomplicated; F25.9 Schizoaffective disorder, unspecified; J45.22 Mild intermittent asthma with status asthmaticus; K21.9 Gastro-esophageal reflux disease without esophagitis; B96.81 Helicobacter pylori [H. pylori] as the cause of diseases classified elsewhere; G47.00 Insomnia, unspecified; E66.9 Obesity, unspecified; Z68.41 Body mass index [BMI] 40.0-44.9, adult; Z88.8 Allergy status to other drugs, medicaments and biological substances; Z87.891 Personal history of nicotine dependence
CPT/HCPCS: 36415; 80053; 81003; 85027; 86593; 93005; 93010

== ENCOUNTER 2017-06-29 09:42 | Inpatient (IN) | payer OTHER ==
[2017-06-29 10:40] VITALS: BMI 45.1
[2017-06-29] MEDS ORDERED: MAGNESIUM HYDROX 2400MG/30ML ORAL SUSPENSION 30 ML CUP PO PRN (13:08)
[2017-06-29] MEDS ORDERED: chlordiazePOXIDE HCL 25 MG CAPSULE PO ONE (13:08)
[2017-06-29] MEDS ORDERED: IBUPROFEN 400 MG TABLET (FP) PO PRN (13:08)
[2017-06-29] MEDS ORDERED: MAG HYDROX/AL HYDROX/SIMETH 30 ML UNIT-DOSE CUP PO PRN (13:08)
[2017-06-29] MEDS ORDERED: guaiFENesin/D-METHORPHAN HB 10 ML UNIT-DOSE CUPS PO PRN (13:08)
[2017-06-29] MEDS ORDERED: P-EPHED 60MG/TRIPROLIDI 2.5MG TABLET PO PRN (13:08)
[2017-06-29] MEDS ORDERED: hydrOXYzine PAMOATE 50 MG CAPSULE (FP) PO PRN (13:08)
[2017-06-29] MEDS ORDERED: ACETAMINOPHEN 325 MG TABLET (FP) PO PRN (13:08)
[2017-06-29] MEDS ORDERED: chlordiazePOXIDE HCL 25 MG CAPSULE PO PRN (13:08)
[2017-06-29] MEDS ORDERED: LOPERAMIDE HCL 2 MG CAPSULE PO PRN (13:08)
[2017-06-29] MEDS ORDERED: diphenhydrAMINE HCL 50 MG CAPSULE PO PRN (13:08)
[2017-06-29] MEDS ORDERED: MENTHOL/PHENOL 1 EACH UD MM PRN (13:08)
[2017-06-29] MEDS ORDERED: MAGNESIUM CITRATE 300 ML BOTTLE PO PRN (13:08)
[2017-06-29] MEDS ORDERED: ALBUTEROL SO4 18 GM HFA INHALER IH PRN (13:10)
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
[2017-06-29] MEDS: PANTOPRAZOLE 40 MG TABLET (FP) PO SCH (14:30)
[2017-06-29] MEDS: chlordiazePOXIDE HCL 25 MG CAPSULE PO SCH ×2 (17:08→22:27)
[2017-06-29 21:46] LABS: URINE APPEARANCE CLEAR; URINE BILIRUBIN NEGATIVE (NEGATIVE); URINE BLOOD NEGATIVE (NEGATIVE); URINE COLOR STRAW; URINE GLUCOSE (UA) NEGATIVE (NEGATIVE); URINE KETONE NEGATIVE (NEGATIVE); URINE NITRITE NEGATIVE (NEGATIVE); URINE PROTEIN NEGATIVE (NEGATIVE); URINE UROBILINOGEN NEGATIVE mg/dL (0.2-1.0)
[2017-06-29] MEDS: THIAMINE HCL 100 MG TABLET (FP) PO SCH (22:27)
[2017-06-30] MEDS: chlordiazePOXIDE HCL 25 MG CAPSULE PO SCH ×4 (05:23→22:28)
--- NOTE | 2017-06-30 10:02 | PN ---
S CIWA - CIWA Score Nausea/Vomitin-No Nausea/No Vomiting Muscle Tremors: 4-Moderate,w/Arms Extend Anxiety: 3 Agitation: 4-Moderately Restless Paroxysmal Sweats: 3 Orientation: 0-Oriented Tacttile Disturbances: 0-None Auditory Disturbances: 0-None Visual Disturbances: 0-None Headache: 0-None Present CIWA-Ar Total Score: 14 BHS Progress Note (SOAP) Subjective: interrupted sleep agitation anxiety body aches sweats Objective: 06/30/17 10:02 Vital Signs Temperature 98.2 F 06/30/17 09:57 Pulse Rate 68 06/30/17 09:57 Respiratory Rate 18 06/30/17 09:57 Blood Pressure 147/84 06/30/17 09:57 O2 Sat by Pulse Oximetry (%) Laboratory Tests 06/29/17 17:55 Urine Color Straw Urine Appearance Clear Urine pH 8.0 Urine Protein Negative Urine Glucose (UA) Negative Urine Ketones Negative Urine Blood Negative Urine Nitrite Negative Urine Bilirubin Negative Urine Urobilinogen Negative labs pending aaox3 ambulating no acute distress Assessment: 06/30/17 10:02 withdrawal sx Plan: continue detox increase fluids labs pending
[2017-06-30 10:08] LABS: MCH 28.7 pg (25.7-33.7); MCHC 33.4 g/dl (32.0-35.9); MEAN PLT VOLUME 10.3 fl (7.5-11.1); PLATELET COUNT 175 K/MM3 (134-434); RDW 13.6 % (11.9-15.9); WHITE BLOOD COUNT 4.1 K/mm3 (4.0-10.0)
[2017-06-30] MEDS: PRENATAL VITAMINS W/ FOLIC ACID TABLET (FP) PO SCH (10:15)
[2017-06-30] MEDS: PANTOPRAZOLE 40 MG TABLET (FP) PO SCH (10:15)
[2017-06-30 10:46] LABS: ALBUMIN 3.6 g/dl (3.4-5.0); CREATININE 0.9 mg/dL (0.7-1.3); GLUCOSE,RANDOM 93 mg/dL (74-106); SGOT/AST 27 U/L (15-37); SGPT/ALT 32 U/L (12-78)
[2017-06-30 10:48] LABS: ALK PHOS 81 U/L (45-117); ANION GAP 9 (8-16); BILIRUBIN,TOTAL 0.7 mg/dL (0.2-1.0); CALCIUM 9.1 mg/dL (8.5-10.1); CO2 26 mmol/L (21-32); TOT PROT 6.6 g/dl (6.4-8.2)
--- NOTE | 2017-06-30 12:45 | EKG ---
Test Reason : Blood Pressure : / mmHG Vent. Rate : 071 BPM Atrial Rate : 071 BPM P-R Int : 182 ms QRS Dur : 100 ms QT Int : 406 ms P-R-T Axes : 080 080 070 degrees QTc Int : 441 ms NORMAL SINUS RHYTHM NORMAL ECG WHEN COMPARED WITH ECG OF 16-MAY-2017 14:42, NO SIGNIFICANT CHANGE WAS FOUND Confirmed by SOCO APONTE MD ([id number]) on 06/30/2017 12:45:28 PM Referred By: Andrei Reyna Confirmed By:SOCO APONTE MD
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
[2017-06-30] MEDS: QUEtiapine FUMARATE 100 MG TABLET (FP) PO SCH ×2 (14:55→22:28)
[2017-06-30 15:40] LABS: URINE LEUK ESTERASE Negative (NEGATIVE)
[2017-06-30] MEDS: THIAMINE HCL 100 MG TABLET (FP) PO SCH (22:28)
[2017-07-01] MEDS: chlordiazePOXIDE HCL 25 MG CAPSULE PO SCH ×2 (05:39→10:18)
[2017-07-01] MEDS: PRENATAL VITAMINS W/ FOLIC ACID TABLET (FP) PO SCH (10:17)
[2017-07-01] MEDS: QUEtiapine FUMARATE 100 MG TABLET (FP) PO SCH ×2 (10:17→22:30)
[2017-07-01] MEDS: PANTOPRAZOLE 40 MG TABLET (FP) PO SCH (10:18)
--- NOTE | 2017-07-01 10:28 | PN ---
[facility] CIWA - CIWA Score Nausea/Vomitin-No Nausea/No Vomiting Muscle Tremors: 3 Anxiety: 3 Agitation: 3 Paroxysmal Sweats: 3 Orientation: 0-Oriented Tacttile Disturbances: 0-None Auditory Disturbances: 0-None Visual Disturbances: 0-None Headache: 0-None Present CIWA-Ar Total Score: 12 S Progress Note (SOAP) Subjective: sweats shakes anxiety interrupted sleep Objective: 07/01/17 11:28 Vital Signs Temperature 97.9 F 07/01/17 09:37 Pulse Rate 77 07/01/17 09:37 Respiratory Rate 20 07/01/17 09:37 Blood Pressure 162/99 07/01/17 09:37 O2 Sat by Pulse Oximetry (%) Laboratory Last Values WBC 4.1 K/mm3 (4.0-10.0) 06/30/17 07:00 RBC 5.39 M/mm3 (4.00-5.60) 06/30/17 07:00 Hgb 15.5 GM/dL (11.7-16.9) 06/30/17 07:00 Hct 46.3 % (35.4-49) 06/30/17 07:00 MCV 86.0 fl (80-96) 06/30/17 07:00 MCH 28.7 pg (25.7-33.7) 06/30/17 07:00 MCHC 33.4 g/dl (32.0-35.9) 06/30/17 07:00 RDW 13.6 % (11.9-15.9) 06/30/17 07:00 Plt Count 175 K/MM3 (134-434) 06/30/17 07:00 MPV 10.3 fl (7.5-11.1) 06/30/17 07:00 Sodium 140 mmol/L (136-145) 06/30/17 07:00 Potassium 3.8 mmol/L (3.5-5.1) 06/30/17 07:00 Chloride 105 mmol/L (98-107) 06/30/17 07:00 Carbon Dioxide 26 mmol/L (21-32) 06/30/17 07:00 Anion Gap 9 (8-16) 06/30/17 07:00 BUN 8 mg/dL (7-18) D 06/30/17 07:00 Creatinine 0.9 mg/dL (0.7-1.3) 06/30/17 07:00 Creat Clearance w eGFR > 60 (>60) 06/30/17 07:00 Random Glucose 93 mg/dL (74-106) 06/30/17 07:00 Calcium 9.1 mg/dL (8.5-10.1) D 06/30/17 07:00 Total Bilirubin 0.7 mg/dL (0.2-1.0) D 06/30/17 07:00 AST 27 U/L (15-37) 06/30/17 07:00 ALT 32 U/L (12-78) 06/30/17 07:00 Alkaline Phosphatase 81 U/L (45-117) 06/30/17 07:00 Total Protein 6.6 g/dl (6.4-8.2) 06/30/17 07:00 Albumin 3.6 g/dl (3.4-5.0) 06/30/17 07:00 Urine Color Straw 06/29/17 17:55 Urine Appearance Clear 06/29/17 17:55 Urine pH 8.0 (5.0-8.0) 06/29/17 17:55 Ur Specific [place] 1.015 (1.005-1.025) 06/29/17 17:55 Urine Protein Negative (NEGATIVE) 06/29/17 17:55 Urine Glucose (UA) Negative (NEGATIVE) 06/29/17 17:55 Urine Ketones Negative (NEGATIVE) 06/29/17 17:55 Urine Blood Negative (NEGATIVE) 06/29/17 17:55 Urine Nitrite Negative (NEGATIVE) 06/29/17 17:55 Urine Bilirubin Negative (NEGATIVE) 06/29/17 17:55 Urine Urobilinogen Negative mg/dL (0.2-1.0) 06/29/17 17:55 Ur Leukocyte Esterase Negative (NEGATIVE) 06/29/17 17:55 RPR Titer Nonreactive (NONREACTIVE) 06/30/17 07:00 Labs noted Assessment: Withdrawal sx Plan: Continue detox
[2017-07-01] MEDS: chlordiazePOXIDE 5 MG CAPSULE PO SCH ×2 (17:46→22:30)
[2017-07-01] MEDS: THIAMINE HCL 100 MG TABLET (FP) PO SCH (22:30)
[2017-07-02] MEDS: chlordiazePOXIDE 5 MG CAPSULE PO SCH ×2 (05:43→10:11)
--- NOTE | 2017-07-02 10:09 | PN ---
[facility] Progress Note (SOAP) Subjective: irritable sweats Objective: 07/02/17 10:09 Vital Signs Temperature 97.3 F L 07/02/17 06:27 Pulse Rate 67 07/02/17 06:27 Respiratory Rate 18 07/02/17 06:27 Blood Pressure 139/79 07/02/17 06:27 O2 Sat by Pulse Oximetry (%) aaox3 ambulating no acute distress Assessment: 07/02/17 10:09 withdrawal sx Plan: continue detox increase fluids d/c in am
[2017-07-02] MEDS: PANTOPRAZOLE 40 MG TABLET (FP) PO SCH (10:11)
[2017-07-02] MEDS: PRENATAL VITAMINS W/ FOLIC ACID TABLET (FP) PO SCH (10:11)
[2017-07-02] MEDS: QUEtiapine FUMARATE 100 MG TABLET (FP) PO SCH ×2 (10:11→22:30)
[2017-07-02] MEDS: chlordiazePOXIDE HCL 10 MG CAPSULE PO SCH ×2 (18:38→22:30)
[2017-07-02] MEDS: THIAMINE HCL 100 MG TABLET (FP) PO SCH (22:30)
[2017-07-03] MEDS: chlordiazePOXIDE HCL 10 MG CAPSULE PO SCH ×2 (05:51→10:03)
[2017-07-03 07:13] VITALS: BP 122/67; PULSE 74; TEMP 97.3
--- NOTE | 2017-07-03 09:35 | DS ---
[facility] Detox Discharge Summary Admission Date: 06/29/17 Discharge Date: 07/03/17 - History Present History: Alcohol Dependence, Cannabis Dependence, Cocaine Dependence, Pcp Dependence Additional Comments: Detox completed. Patient is alert, oriented x 3 and stable. Patient encouraged to follow up with PMD at [facility] for medical management. Pertinent Past History: GERD, Asthma, Obesity, Back pain - Physical Exam Results Vital Signs: Vital Signs Temperature 97.3 F L 07/03/17 06:00 Pulse Rate 74 07/03/17 06:00 Respiratory Rate 20 07/03/17 06:00 Blood Pressure 122/67 07/03/17 06:00 O2 Sat by Pulse Oximetry (%) Laboratory Last Values WBC 4.1 K/mm3 (4.0-10.0) 06/30/17 07:00 RBC 5.39 M/mm3 (4.00-5.60) 06/30/17 07:00 Hgb 15.5 GM/dL (11.7-16.9) 06/30/17 07:00 Hct 46.3 % (35.4-49) 06/30/17 07:00 MCV 86.0 fl (80-96) 06/30/17 07:00 MCH 28.7 pg (25.7-33.7) 06/30/17 07:00 MCHC 33.4 g/dl (32.0-35.9) 06/30/17 07:00 RDW 13.6 % (11.9-15.9) 06/30/17 07:00 Plt Count 175 K/MM3 (134-434) 06/30/17 07:00 MPV 10.3 fl (7.5-11.1) 06/30/17 07:00 Sodium 140 mmol/L (136-145) 06/30/17 07:00 Potassium 3.8 mmol/L (3.5-5.1) 06/30/17 07:00 Chloride 105 mmol/L (98-107) 06/30/17 07:00 Carbon Dioxide 26 mmol/L (21-32) 06/30/17 07:00 Anion Gap 9 (8-16) 06/30/17 07:00 BUN 8 mg/dL (7-18) D 06/30/17 07:00 Creatinine 0.9 mg/dL (0.7-1.3) 06/30/17 07:00 Creat Clearance w eGFR > 60 (>60) 06/30/17 07:00 Random Glucose 93 mg/dL (74-106) 06/30/17 07:00 Calcium 9.1 mg/dL (8.5-10.1) D 06/30/17 07:00 Total Bilirubin 0.7 mg/dL (0.2-1.0) D 06/30/17 07:00 AST 27 U/L (15-37) 06/30/17 07:00 ALT 32 U/L (12-78) 06/30/17 07:00 Alkaline Phosphatase 81 U/L (45-117) 06/30/17 07:00 Total Protein 6.6 g/dl (6.4-8.2) 06/30/17 07:00 Albumin 3.6 g/dl (3.4-5.0) 06/30/17 07:00 Urine Color Straw 06/29/17 17:55 Urine Appearance Clear 06/29/17 17:55 Urine pH 8.0 (5.0-8.0) 06/29/17 17:55 Ur Specific [place] 1.015 (1.005-1.025) 06/29/17 17:55 Urine Protein Negative (NEGATIVE) 06/29/17 17:55 Urine Glucose (UA) Negative (NEGATIVE) 06/29/17 17:55 Urine Ketones Negative (NEGATIVE) 06/29/17 17:55 Urine Blood Negative (NEGATIVE) 06/29/17 17:55 Urine Nitrite Negative (NEGATIVE) 06/29/17 17:55 Urine Bilirubin Negative (NEGATIVE) 06/29/17 17:55 Urine Urobilinogen Negative mg/dL (0.2-1.0) 06/29/17 17:55 Ur Leukocyte Esterase Negative (NEGATIVE) 06/29/17 17:55 RPR Titer Nonreactive (NONREACTIVE) 06/30/17 07:00 Labs noted Pertinent Admission Physical Exam Findings: Withdrawal sx - Treatment Hospital Course: Detox Protocol Followed, Detoxed Safely, Responded well, Discharged Condition Good Patient has Accepted a Rehab Referral to: [facility] residential - Medication Discharge Medications: Ambulatory Orders Albuterol Sulfate Inhaler - [Ventolin HFA Inhaler -] 2 inh PO Q4H PRN #1 inh Quetiapine Fumarate [Seroquel] 100 mg PO TID #90 tablet 04/07/17 Amoxicillin - [Amoxicillin 500mg Capsule -] 1,000 mg PO BID 05/16/17 Clarithromycin [Biaxin -] 500 mg PO BID 05/16/17 Quetiapine Fumarate [Seroquel] 100 mg PO HS #30 tablet 05/17/17 Quetiapine Fumarate [Seroquel -] 200 mg PO HS #30 tab 06/30/17 - Diagnosis (1) Substance induced mood disorder Current Visit: Yes Status: Acute (2) Alcohol dependence with uncomplicated withdrawal Current Visit: Yes Status: Acute (3) Asthma Current Visit: Yes Status: Chronic Qualifiers: Asthma severity: mild Asthma complication type: uncomplicated (4) Cannabis dependence, uncomplicated Current Visit: Yes Status: Acute (5) Cocaine dependence, uncomplicated Current Visit: Yes Status: Acute (6) GERD (gastroesophageal reflux disease) Current Visit: Yes Status: Chronic Qualifiers: Esophagitis presence: without esophagitis Qualified Code(s): K21.9 - Gastro-esophageal reflux disease without esophagitis; K21.9 - Gastro- esophageal reflux disease without esophagitis; K21.9 - Gastro-esophageal reflux disease without esophagitis (7) Obesity Current Visit: Yes Status: Chronic (8) PCP abuse Current Visit: Yes Status: Chronic (9) PTSD (post-traumatic stress disorder) Current Visit: Yes Status: Chronic - AMA Did Patient Leave Against Medical Advice: No
[2017-07-03] MEDS: PANTOPRAZOLE 40 MG TABLET (FP) PO SCH (09:47)
[2017-07-03] MEDS: PRENATAL VITAMINS W/ FOLIC ACID TABLET (FP) PO SCH (09:47)
[2017-07-03] MEDS: QUEtiapine FUMARATE 100 MG TABLET (FP) PO SCH (09:50)
== END 2017-07-03 10:32 | disposition home or self-care (01) | DRG 774 ==
LOC: YASAS 09:42 → Y6N 12:21
PROVIDERS: ADMIT Internal Medicine; ATTEND Internal Medicine
PROC: HZ2ZZZZ Detoxification Services for Substance Abuse Treatment (ICD-10-PCS; principal; 2017-06-29)
DX: F10.230 Alcohol dependence with withdrawal, uncomplicated (principal); F14.20 Cocaine dependence, uncomplicated; F12.20 Cannabis dependence, uncomplicated; F16.10 Hallucinogen abuse, uncomplicated; F31.60 Bipolar disorder, current episode mixed, unspecified; F43.10 Post-traumatic stress disorder, unspecified; F19.24 Other psychoactive substance dependence with psychoactive substance-induced mood disorder; F25.9 Schizoaffective disorder, unspecified; J45.20 Mild intermittent asthma, uncomplicated; K21.9 Gastro-esophageal reflux disease without esophagitis; E66.9 Obesity, unspecified; Z68.42 Body mass index [BMI] 45.0-49.9, adult; M54.5 Low back pain; G89.29 Other chronic pain; G47.00 Insomnia, unspecified; Z88.8 Allergy status to other drugs, medicaments and biological substances; Z87.891 Personal history of nicotine dependence; Z87.19 Personal history of other diseases of the digestive system
CPT/HCPCS: 36415; 80053; 81003; 85027; 86593; 93005; 93010

== ENCOUNTER 2017-07-31 10:46 | Inpatient (IN) | payer OTHER ==
[2017-07-31 12:04] VITALS: BMI 44.3
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
[2017-07-31] MEDS ORDERED: IBUPROFEN 400 MG TABLET (FP) PO PRN (17:27)
[2017-07-31] MEDS ORDERED: MENTHOL/PHENOL 1 EACH UD MM PRN (17:27)
[2017-07-31] MEDS ORDERED: ACETAMINOPHEN 325 MG TABLET (FP) PO PRN (17:27)
[2017-07-31] MEDS ORDERED: MAGNESIUM CITRATE 300 ML BOTTLE PO PRN (17:27)
[2017-07-31] MEDS ORDERED: chlordiazePOXIDE HCL 25 MG CAPSULE PO PRN (17:27)
[2017-07-31] MEDS ORDERED: MAG HYDROX/AL HYDROX/SIMETH 30 ML UNIT-DOSE CUP PO PRN (17:27)
[2017-07-31] MEDS ORDERED: guaiFENesin/D-METHORPHAN HB 10 ML UNIT-DOSE CUPS PO PRN (17:27)
[2017-07-31] MEDS ORDERED: P-EPHED 60MG/TRIPROLIDI 2.5MG TABLET PO PRN (17:27)
[2017-07-31] MEDS ORDERED: MAGNESIUM HYDROX 2400MG/30ML ORAL SUSPENSION 30 ML CUP PO PRN (17:27)
[2017-07-31] MEDS ORDERED: LOPERAMIDE HCL 2 MG CAPSULE PO PRN (17:27)
[2017-07-31] MEDS ORDERED: hydrOXYzine PAMOATE 50 MG CAPSULE (FP) PO PRN (17:27)
[2017-07-31] MEDS ORDERED: ALBUTEROL SO4 18 GM HFA INHALER IH PRN (17:29)
[2017-07-31] MEDS: RANITIDINE HCL 150 MG TABLET (FP) PO SCH ×2 (17:58→22:41)
[2017-07-31] MEDS: HYDROCHLOROTHIAZIDE 12.5 MG CAPSULE (FP) PO SCH (17:58)
[2017-07-31 22:12] LABS: URINE APPEARANCE CLEAR; URINE BILIRUBIN NEGATIVE (NEGATIVE); URINE BLOOD NEGATIVE (NEGATIVE); URINE COLOR YELLOW; URINE GLUCOSE (UA) NEGATIVE (NEGATIVE); URINE KETONE NEGATIVE (NEGATIVE); URINE NITRITE NEGATIVE (NEGATIVE); URINE PROTEIN NEGATIVE (NEGATIVE); URINE UROBILINOGEN NEGATIVE mg/dL (0.2-1.0)
[2017-07-31] MEDS: chlordiazePOXIDE HCL 25 MG CAPSULE PO SCH (22:41)
[2017-07-31] MEDS: THIAMINE HCL 100 MG TABLET (FP) PO SCH (22:41)
[2017-08-01] MEDS: chlordiazePOXIDE HCL 25 MG CAPSULE PO SCH ×4 (05:22→22:10)
[2017-08-01 09:43] LABS: MCH 28.8 pg (25.7-33.7); MEAN CELL VOLUME 84.6 fl (80-96); MEAN PLT VOLUME 9.6 fl (7.5-11.1); PLATELET COUNT 186 K/MM3 (134-434); RDW 13.9 % (11.9-15.9); WHITE BLOOD COUNT 4.9 K/mm3 (4.0-10.0)
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
[2017-08-01] MEDS: RANITIDINE HCL 150 MG TABLET (FP) PO SCH ×2 (10:34→22:09)
[2017-08-01] MEDS: PRENATAL VITAMINS W/ FOLIC ACID TABLET (FP) PO SCH (10:34)
[2017-08-01] MEDS: HYDROCHLOROTHIAZIDE 12.5 MG CAPSULE (FP) PO SCH (10:35)
[2017-08-01 11:09] LABS: URINE LEUK ESTERASE Negative (NEGATIVE)
[2017-08-01 11:40] LABS: ALBUMIN 3.8 g/dl (3.4-5.0); ANION GAP 7 (8-16); CO2 29 mmol/L (21-32); GLUCOSE,RANDOM 100 mg/dL (74-106)
[2017-08-01 11:43] LABS: ALK PHOS 78 U/L (45-117); BILIRUBIN,TOTAL 0.9 mg/dL (0.2-1.0); CREATININE 0.9 mg/dL (0.7-1.3); SGOT/AST 22 U/L (15-37); SGPT/ALT 32 U/L (12-78); TOT PROT 6.7 g/dl (6.4-8.2)
--- NOTE | 2017-08-01 12:00 | PN ---
[facility] CIWA - CIWA Score Nausea/Vomitin-No Nausea/No Vomiting Muscle Tremors: 4-Moderate,w/Arms Extend Anxiety: 4-Mod. Anxious/Guarded Agitation: 4-Moderately Restless Paroxysmal Sweats: 1-Minimal Palms Moist Orientation: 0-Oriented Tacttile Disturbances: 3-Moderate Itch/Numb/Burn Auditory Disturbances: 0-None Visual Disturbances: 0-None Headache: 0-None Present CIWA-Ar Total Score: 16 BHS Progress Note (SOAP) Subjective: SLIGHT ANXIETY,SWEATS. ALERT O X3. OOB WITH NAD. Objective: 08/01/17 11:59 Vital Signs Temperature 97.4 F L 08/01/17 09:28 Pulse Rate 85 08/01/17 09:28 Respiratory Rate 18 08/01/17 09:28 Blood Pressure 144/82 08/01/17 09:28 O2 Sat by Pulse Oximetry (%) Laboratory Last Values WBC 4.9 K/mm3 (4.0-10.0) 08/01/17 07:35 RBC 5.43 M/mm3 (4.00-5.60) 08/01/17 07:35 Hgb 15.6 GM/dL (11.7-16.9) 08/01/17 07:35 Hct 46.0 % (35.4-49) 08/01/17 07:35 MCV 84.6 fl (80-96) 08/01/17 07:35 MCH 28.8 pg (25.7-33.7) 08/01/17 07:35 MCHC 34.0 g/dl (32.0-35.9) 08/01/17 07:35 RDW 13.9 % (11.9-15.9) 08/01/17 07:35 Plt Count 186 K/MM3 (134-434) 08/01/17 07:35 MPV 9.6 fl (7.5-11.1) 08/01/17 07:35 Sodium 141 mmol/L (136-145) 08/01/17 07:35 Potassium 3.8 mmol/L (3.5-5.1) 08/01/17 07:35 Chloride 105 mmol/L (98-107) 08/01/17 07:35 Carbon Dioxide 29 mmol/L (21-32) 08/01/17 07:35 Anion Gap 7 (8-16) L 08/01/17 07:35 BUN 10 mg/dL (7-18) D 08/01/17 07:35 Creatinine 0.9 mg/dL (0.7-1.3) 08/01/17 07:35 Creat Clearance w eGFR > 60 (>60) 08/01/17 07:35 Random Glucose 100 mg/dL (74-106) 08/01/17 07:35 Calcium 9.0 mg/dL (8.5-10.1) 08/01/17 07:35 Total Bilirubin 0.9 mg/dL (0.2-1.0) D 08/01/17 07:35 AST 22 U/L (15-37) 08/01/17 07:35 ALT 32 U/L (12-78) 08/01/17 07:35 Alkaline Phosphatase 78 U/L (45-117) 08/01/17 07:35 Total Protein 6.7 g/dl (6.4-8.2) 08/01/17 07:35 Albumin 3.8 g/dl (3.4-5.0) 08/01/17 07:35 Urine Color Yellow 07/31/17 21:50 Urine Appearance Clear 07/31/17 21:50 Urine pH 7.0 (5.0-8.0) 07/31/17 21:50 Ur Specific [place] 1.021 (1.001-1.035) 07/31/17 21:50 Urine Protein Negative (NEGATIVE) 07/31/17 21:50 Urine Glucose (UA) Negative (NEGATIVE) 07/31/17 21:50 Urine Ketones Negative (NEGATIVE) 07/31/17 21:50 Urine Blood Negative (NEGATIVE) 07/31/17 21:50 Urine Nitrite Negative (NEGATIVE) 07/31/17 21:50 Urine Bilirubin Negative (NEGATIVE) 07/31/17 21:50 Urine Urobilinogen Negative mg/dL (0.2-1.0) 07/31/17 21:50 Ur Leukocyte Esterase Negative (NEGATIVE) 07/31/17 21:50 Assessment: 08/01/17 11:59 WITHDRAWAL SX Plan: CONTINUE DETOX
--- NOTE | 2017-08-01 12:00 | EKG ---
Test Reason : Blood Pressure : / mmHG Vent. Rate : 069 BPM Atrial Rate : 069 BPM P-R Int : 180 ms QRS Dur : 092 ms QT Int : 398 ms P-R-T Axes : 071 073 065 degrees QTc Int : 426 ms NORMAL SINUS RHYTHM WITH SINUS ARRHYTHMIA NORMAL ECG WHEN COMPARED WITH ECG OF 29-JUN-2017 13:36, NO SIGNIFICANT CHANGE WAS FOUND Confirmed by PRADEEP MARTINEZ MD ([id number]) on 08/01/2017 11:59:41 AM Referred By: Confirmed By:PRADEEP MARTINEZ MD
[2017-08-01] MEDS: QUEtiapine FUMARATE 100 MG TABLET (FP) PO SCH (21:37)
[2017-08-01] MEDS: THIAMINE HCL 100 MG TABLET (FP) PO SCH (22:09)
[2017-08-02] MEDS: chlordiazePOXIDE HCL 25 MG CAPSULE PO SCH ×3 (05:42→16:42)
[2017-08-02] MEDS: QUEtiapine FUMARATE 100 MG TABLET (FP) PO SCH ×2 (10:33→22:00)
[2017-08-02] MEDS: PRENATAL VITAMINS W/ FOLIC ACID TABLET (FP) PO SCH (10:33)
[2017-08-02] MEDS: HYDROCHLOROTHIAZIDE 12.5 MG CAPSULE (FP) PO SCH (10:33)
[2017-08-02] MEDS: RANITIDINE HCL 150 MG TABLET (FP) PO SCH ×2 (10:33→22:11)
--- NOTE | 2017-08-02 15:56 | PN ---
S CIWA - CIWA Score Nausea/Vomitin-No Nausea/No Vomiting Muscle Tremors: 3 Anxiety: 4-Mod. Anxious/Guarded Agitation: 3 Paroxysmal Sweats: 3 Orientation: 0-Oriented Tacttile Disturbances: 3-Moderate Itch/Numb/Burn Auditory Disturbances: 0-None Visual Disturbances: 0-None Headache: 0-None Present CIWA-Ar Total Score: 16 BHS Progress Note (SOAP) Subjective: Constipation, Tremors, Sweating, Body Aches. Objective: PT. A & O X 3. NO ACUTE DISTRESS. 08/02/17 15:55 Vital Signs Temperature 97.1 F L 08/02/17 13:08 Pulse Rate 83 08/02/17 13:08 Respiratory Rate 18 08/02/17 13:08 Blood Pressure 134/87 08/02/17 13:08 O2 Sat by Pulse Oximetry (%) Laboratory Tests 07/31/17 08/01/17 08/01/17 21:50 07:35 07:35 WBC 4.9 RBC 5.43 Hgb 15.6 Hct 46.0 MCV 84.6 MCH 28.8 MCHC 34.0 RDW 13.9 Plt Count 186 MPV 9.6 Sodium 141 Potassium 3.8 Chloride 105 Carbon Dioxide 29 Anion Gap 7 L BUN 10 D Creatinine 0.9 Creat Clearance w eGFR > 60 Random Glucose 100 Calcium 9.0 Total Bilirubin 0.9 D AST 22 ALT 32 Alkaline Phosphatase 78 Total Protein 6.7 Albumin 3.8 Urine Color Yellow Urine Appearance Clear Urine pH 7.0 Ur Specific [place] 1.021 Urine Protein Negative Urine Glucose (UA) Negative Urine Ketones Negative Urine Blood Negative Urine Nitrite Negative Urine Bilirubin Negative Urine Urobilinogen Negative Ur Leukocyte Esterase Negative RPR Titer 08/01/17 07:35 WBC RBC Hgb Hct MCV MCH MCHC RDW Plt Count MPV Sodium Potassium Chloride Carbon Dioxide Anion Gap BUN Creatinine Creat Clearance w eGFR Random Glucose Calcium Total Bilirubin AST ALT Alkaline Phosphatase Total Protein Albumin Urine Color Urine Appearance Urine pH Ur Specific [place] Urine Protein Urine Glucose (UA) Urine Ketones Urine Blood Urine Nitrite Urine Bilirubin Urine Urobilinogen Ur Leukocyte Esterase RPR Titer Nonreactive LABS NOTED. Assessment: 08/02/17 15:55 WITHDRAWAL SYMPTOMS. Plan: CONTINUE DETOX.
[2017-08-02] MEDS: THIAMINE HCL 100 MG TABLET (FP) PO SCH (22:11)
[2017-08-02] MEDS: chlordiazePOXIDE 5 MG CAPSULE PO SCH (22:11)
[2017-08-03] MEDS: chlordiazePOXIDE 5 MG CAPSULE PO SCH ×3 (05:34→16:30)
[2017-08-03] MEDS: RANITIDINE HCL 150 MG TABLET (FP) PO SCH ×2 (10:21→22:20)
[2017-08-03] MEDS: HYDROCHLOROTHIAZIDE 12.5 MG CAPSULE (FP) PO SCH (10:21)
[2017-08-03] MEDS: PRENATAL VITAMINS W/ FOLIC ACID TABLET (FP) PO SCH (10:21)
[2017-08-03] MEDS: QUEtiapine FUMARATE 100 MG TABLET (FP) PO SCH ×2 (10:21→22:00)
--- NOTE | 2017-08-03 13:17 | PN ---
[facility] Progress Note (SOAP) Subjective: Anxious, agitated, sweating, interrupted sleep Objective: 08/03/17 13:16 Last Vital Signs Temp Pulse Resp BP Pulse Ox 97.7 F 91 H 18 145/93 08/03/17 10:24 08/03/17 10:24 08/03/17 10:24 08/03/17 10:24 Laboratory Tests 07/31/17 08/01/17 08/01/17 21:50 07:35 07:35 WBC 4.9 RBC 5.43 Hgb 15.6 Hct 46.0 MCV 84.6 MCH 28.8 MCHC 34.0 RDW 13.9 Plt Count 186 MPV 9.6 Sodium 141 Potassium 3.8 Chloride 105 Carbon Dioxide 29 Anion Gap 7 L BUN 10 D Creatinine 0.9 Creat Clearance w eGFR > 60 Random Glucose 100 Calcium 9.0 Total Bilirubin 0.9 D AST 22 ALT 32 Alkaline Phosphatase 78 Total Protein 6.7 Albumin 3.8 Urine Color Yellow Urine Appearance Clear Urine pH 7.0 Ur Specific [place] 1.021 Urine Protein Negative Urine Glucose (UA) Negative Urine Ketones Negative Urine Blood Negative Urine Nitrite Negative Urine Bilirubin Negative Urine Urobilinogen Negative Ur Leukocyte Esterase Negative RPR Titer 08/01/17 07:35 WBC RBC Hgb Hct MCV MCH MCHC RDW Plt Count MPV Sodium Potassium Chloride Carbon Dioxide Anion Gap BUN Creatinine Creat Clearance w eGFR Random Glucose Calcium Total Bilirubin AST ALT Alkaline Phosphatase Total Protein Albumin Urine Color Urine Appearance Urine pH Ur Specific [place] Urine Protein Urine Glucose (UA) Urine Ketones Urine Blood Urine Nitrite Urine Bilirubin Urine Urobilinogen Ur Leukocyte Esterase RPR Titer Nonreactive Labs noted Assessment: 08/03/17 13:16 Withdrawal symptoms Plan: Continue detox
[2017-08-03] MEDS: THIAMINE HCL 100 MG TABLET (FP) PO SCH (22:20)
[2017-08-03] MEDS: chlordiazePOXIDE HCL 10 MG CAPSULE PO SCH (22:20)
[2017-08-04] MEDS: chlordiazePOXIDE HCL 10 MG CAPSULE PO SCH ×3 (05:45→17:08)
[2017-08-04] MEDS: QUEtiapine FUMARATE 100 MG TABLET (FP) PO SCH ×2 (10:19→22:30)
[2017-08-04] MEDS: PRENATAL VITAMINS W/ FOLIC ACID TABLET (FP) PO SCH (10:19)
[2017-08-04] MEDS: HYDROCHLOROTHIAZIDE 12.5 MG CAPSULE (FP) PO SCH (10:19)
[2017-08-04] MEDS: RANITIDINE HCL 150 MG TABLET (FP) PO SCH ×2 (10:19→22:30)
--- NOTE | 2017-08-04 10:36 | PN ---
[facility] Progress Note (SOAP) Subjective: DECREASED ANXIETY, SWEATS, TREMORS. Objective: 08/04/17 10:35 Vital Signs Temperature 97.0 F L 08/04/17 09:06 Pulse Rate 86 08/04/17 09:06 Respiratory Rate 18 08/04/17 09:06 Blood Pressure 150/84 08/04/17 09:06 O2 Sat by Pulse Oximetry (%) Laboratory Last Values WBC 4.9 K/mm3 (4.0-10.0) 08/01/17 07:35 RBC 5.43 M/mm3 (4.00-5.60) 08/01/17 07:35 Hgb 15.6 GM/dL (11.7-16.9) 08/01/17 07:35 Hct 46.0 % (35.4-49) 08/01/17 07:35 MCV 84.6 fl (80-96) 08/01/17 07:35 MCH 28.8 pg (25.7-33.7) 08/01/17 07:35 MCHC 34.0 g/dl (32.0-35.9) 08/01/17 07:35 RDW 13.9 % (11.9-15.9) 08/01/17 07:35 Plt Count 186 K/MM3 (134-434) 08/01/17 07:35 MPV 9.6 fl (7.5-11.1) 08/01/17 07:35 Sodium 141 mmol/L (136-145) 08/01/17 07:35 Potassium 3.8 mmol/L (3.5-5.1) 08/01/17 07:35 Chloride 105 mmol/L (98-107) 08/01/17 07:35 Carbon Dioxide 29 mmol/L (21-32) 08/01/17 07:35 Anion Gap 7 (8-16) L 08/01/17 07:35 BUN 10 mg/dL (7-18) D 08/01/17 07:35 Creatinine 0.9 mg/dL (0.7-1.3) 08/01/17 07:35 Creat Clearance w eGFR > 60 (>60) 08/01/17 07:35 Random Glucose 100 mg/dL (74-106) 08/01/17 07:35 Calcium 9.0 mg/dL (8.5-10.1) 08/01/17 07:35 Total Bilirubin 0.9 mg/dL (0.2-1.0) D 08/01/17 07:35 AST 22 U/L (15-37) 08/01/17 07:35 ALT 32 U/L (12-78) 08/01/17 07:35 Alkaline Phosphatase 78 U/L (45-117) 08/01/17 07:35 Total Protein 6.7 g/dl (6.4-8.2) 08/01/17 07:35 Albumin 3.8 g/dl (3.4-5.0) 08/01/17 07:35 Urine Color Yellow 07/31/17 21:50 Urine Appearance Clear 07/31/17 21:50 Urine pH 7.0 (5.0-8.0) 07/31/17 21:50 Ur Specific [place] 1.021 (1.001-1.035) 07/31/17 21:50 Urine Protein Negative (NEGATIVE) 07/31/17 21:50 Urine Glucose (UA) Negative (NEGATIVE) 07/31/17 21:50 Urine Ketones Negative (NEGATIVE) 07/31/17 21:50 Urine Blood Negative (NEGATIVE) 07/31/17 21:50 Urine Nitrite Negative (NEGATIVE) 07/31/17 21:50 Urine Bilirubin Negative (NEGATIVE) 07/31/17 21:50 Urine Urobilinogen Negative mg/dL (0.2-1.0) 07/31/17 21:50 Ur Leukocyte Esterase Negative (NEGATIVE) 07/31/17 21:50 RPR Titer Nonreactive (NONREACTIVE) 08/01/17 07:35 Assessment: 08/04/17 10:35 NAD Plan: CONTINUE DETOX TO FOLLOW UP WITH AFTERCARE.
[2017-08-04] MEDS: THIAMINE HCL 100 MG TABLET (FP) PO SCH (22:30)
[2017-08-05 09:14] VITALS: BP 137/76; PULSE 85; TEMP 97.2
[2017-08-05] MEDS: PRENATAL VITAMINS W/ FOLIC ACID TABLET (FP) PO SCH (10:20)
[2017-08-05] MEDS: HYDROCHLOROTHIAZIDE 12.5 MG CAPSULE (FP) PO SCH (10:20)
[2017-08-05] MEDS: QUEtiapine FUMARATE 100 MG TABLET (FP) PO SCH (10:21)
[2017-08-05] MEDS: RANITIDINE HCL 150 MG TABLET (FP) PO SCH (10:21)
--- NOTE | 2017-08-05 10:49 | DS ---
[facility] Detox Discharge Summary Admission Date: 07/31/17 Discharge Date: 08/05/17 - History Present History: Alcohol Dependence, Cocaine Dependence Additional Comments: DETOX COMPLETED. NAD.PT ENCOURAGED TO FOLLOW UP WITH MEDICAL CARE WITH PCP AT [place], [place] FOR MEDICAL MANAGEMENT NEEDED. Pertinent Past History: GERD ASTHMA OBESITY - Physical Exam Results Vital Signs: Vital Signs Temperature 97.2 F L 08/05/17 09:13 Pulse Rate 85 08/05/17 09:13 Respiratory Rate 18 08/05/17 09:13 Blood Pressure 137/76 08/05/17 09:13 O2 Sat by Pulse Oximetry (%) Pertinent Admission Physical Exam Findings: WITHDRAWAL SX - Treatment Hospital Course: Detox Protocol Followed, Detoxed Safely, Responded well, Discharged Condition Good - Medication Discharge Medications: Ambulatory Orders Albuterol Sulfate Inhaler - [Ventolin HFA Inhaler -] 2 inh PO Q4H PRN #1 inh Quetiapine Fumarate [Seroquel] 100 mg PO BID 07/31/17 - Diagnosis (1) Alcohol dependence with uncomplicated withdrawal Status: Acute (2) Asthma Status: Chronic Qualifiers: Asthma severity: mild Asthma complication type: uncomplicated (3) Chronic back pain Status: Chronic Qualifiers: Back pain location: low back pain Back pain laterality: bilateral Sciatica presence: without sciatica Qualified Code(s): M54.5 - Low back pain; G89.29 - Other chronic pain; G89.29 - Other chronic pain (4) GERD (gastroesophageal reflux disease) Status: Chronic Qualifiers: Esophagitis presence: without esophagitis Qualified Code(s): K21.9 - Gastro -esophageal reflux disease without esophagitis (5) Obesity Status: Chronic Qualifiers: Obesity type: unspecified obesity type Obesity classification: unspecified obesity classification Serious obesity comorbidity presence: without serious comorbidity Qualified Code(s): E66.9 - Obesity, unspecified (6) Cannabis dependence, uncomplicated Status: Chronic - AMA Did Patient Leave Against Medical Advice: No
== END 2017-08-05 10:21 | disposition home or self-care (01) | DRG 775 ==
LOC: YASAS 10:46 → Y3N 16:49
PROVIDERS: ADMIT Internal Medicine; ATTEND Internal Medicine
PROC: HZ2ZZZZ Detoxification Services for Substance Abuse Treatment (ICD-10-PCS; principal; 2017-07-31)
DX: F10.230 Alcohol dependence with withdrawal, uncomplicated (principal); F12.20 Cannabis dependence, uncomplicated; F31.9 Bipolar disorder, unspecified; F19.24 Other psychoactive substance dependence with psychoactive substance-induced mood disorder; F25.9 Schizoaffective disorder, unspecified; K21.9 Gastro-esophageal reflux disease without esophagitis; G47.00 Insomnia, unspecified; M54.5 Low back pain; G89.29 Other chronic pain; Z87.09 Personal history of other diseases of the respiratory system; E66.9 Obesity, unspecified; Z68.41 Body mass index [BMI] 40.0-44.9, adult
CPT/HCPCS: 36415; 80053; 81003; 85027; 86593; 93005; 93010

== ENCOUNTER 2017-09-06 18:18 | Inpatient (IN) | payer OTHER ==
[2017-09-06] MEDS ORDERED: IBUPROFEN 400 MG TABLET (FP) PO PRN (20:38)
[2017-09-06] MEDS ORDERED: MAGNESIUM CITRATE 300 ML BOTTLE PO PRN (20:38)
[2017-09-06] MEDS ORDERED: LOPERAMIDE HCL 2 MG CAPSULE PO PRN (20:38)
[2017-09-06] MEDS ORDERED: MENTHOL/PHENOL 1 EACH UD MM PRN (20:38)
[2017-09-06] MEDS ORDERED: hydrOXYzine PAMOATE 50 MG CAPSULE (FP) PO PRN (20:38)
[2017-09-06] MEDS ORDERED: guaiFENesin/D-METHORPHAN HB 10 ML UNIT-DOSE CUPS PO PRN (20:38)
[2017-09-06] MEDS ORDERED: P-EPHED 60MG/TRIPROLIDI 2.5MG TABLET PO PRN (20:38)
[2017-09-06] MEDS ORDERED: MAG HYDROX/AL HYDROX/SIMETH 30 ML UNIT-DOSE CUP PO PRN (20:38)
[2017-09-06] MEDS ORDERED: MAGNESIUM HYDROX 2400MG/30ML ORAL SUSPENSION 30 ML CUP PO PRN (20:38)
[2017-09-06] MEDS ORDERED: ACETAMINOPHEN 325 MG TABLET (FP) PO PRN (20:38)
[2017-09-06] MEDS ORDERED: ALBUTEROL SO4 18 GM HFA INHALER IH PRN (20:43)
--- NOTE | 2017-09-06 21:12 | PN ---
[facility] Progress Note Note: Psychiatry Attending's on-call note : Called to enter order for seroquel. Chart reviewed. Patient is already known to me. Transferred today from [address] [place] [address]. Plan : Seroquel 100 mg po bid Continuity of care.
[2017-09-06] MEDS: QUEtiapine FUMARATE 100 MG TABLET (FP) PO SCH (21:30)
[2017-09-06] MEDS: THIAMINE HCL 100 MG TABLET (FP) PO SCH (21:30)
--- NOTE | 2017-09-07 09:06 | HP ---
[facility] Rehab Assess/Revision - Admission History Admitted to Rehab from: [facility] Date of Admission to Rehab: 09/06/17 - Vital signs Vital Signs: Vital Signs Period Temp Pulse Resp BP Sys/Dominguez Pulse Ox Last 24 Hr 98.2 F-98.3 F 75-99 18-20 146-150/83-92 - Findings Detox History & Physical reviewed: Yes Concur with findings: Yes Comments/Additional Findings: for rehab as protocol Inpatient Rehab Admission - Initial Determination Are CD services needed?: Yes Free of communicable disease: Yes Not in need of hospitalization: Yes - Rehab Admission Criteria Previous failed treatment: Yes Poor recovery environment: Yes Comorbidities: Yes Patient is meeting Inpatient Rehab admission criteria:: Yes
[2017-09-07] MEDS: QUEtiapine FUMARATE 100 MG TABLET (FP) PO SCH ×2 (09:51→21:23)
[2017-09-07] MEDS: PRENATAL VITAMINS W/ FOLIC ACID TABLET (FP) PO SCH (09:51)
[2017-09-07] MEDS: THIAMINE HCL 100 MG TABLET (FP) PO SCH (21:23)
[2017-09-08 06:40] VITALS: BP 143/89; PULSE 74; TEMP 97.3
[2017-09-08] MEDS: QUEtiapine FUMARATE 100 MG TABLET (FP) PO SCH (10:09)
[2017-09-08] MEDS: PRENATAL VITAMINS W/ FOLIC ACID TABLET (FP) PO SCH (10:09)
--- NOTE | 2017-09-08 11:22 | HP ---
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 Medical History: BA,GERD,Obesity. Psychiatric History: Patient was dx with Bipolar disorder on 1999.He reports multiple psychiatric hospitalizations.Most recent was to [facility].Denies history of suicidal attempts.He reports poor compliance with psychiatric treatment.Obtains psychotropic medications from local ER.Most recent admission was in 2016 to [facility] for safety.Patient is willing to continue Seroquel 100 mg po bid. Physical/Sexual Abuse/Trauma History: not willing to discuss Vital Signs: Vital Signs - 24 hr 09/08/17 09/08/17 09/08/17 00:30 03:30 06:38 Temperature 97.3 F L Pulse Rate 74 Respiratory 18 18 18 Rate Blood Pressure 143/89 Allergies/Adverse Reactions: Allergies Allergy/AdvReac Type Severity Reaction Status Date / Time No Known Drug Allergies Allergy Verified 09/02/17 13:50 aripiprazole [From Abilify] AdvReac Severe anxiety Verified 09/02/17 11:33 benztropine mesylate AdvReac Severe anxiety Verified 09/02/17 11:33 [From Cogentin] clonazepam [From Klonopin] AdvReac Severe anxiety Verified 09/02/17 11:33 haloperidol [From Haldol] AdvReac Severe stiffness Verified 09/02/17 11:33 haloperidol lactate AdvReac Severe Verified 09/02/17 11:33 [From Haldol] Date of last physical exam: 09/02/17 Concur with the findings of this exam: Yes - Substance Abuse/Tx History Hx Alcohol Use: Yes (reports drinking since 16 years old,3-4 40 oz of beer,hard liquors) Hx Substance Use: Yes (marijuana since 16 yo,7 blunts daily,cociane on/off) Substance Use Type: Alcohol, Cocaine, Marijuana Hx Substance Use Treatment: Yes (multiple previous treatments) Mental Status Exam - Mental Status Exam Alert and Oriented to: Time, Place, Person Cognitive Function: Grossly Intact Patient Appearance: Well Groomed Mood: Withdrawn Affect: Mood Congruent Patient Behavior: Cooperative Speech Pattern: Clear Voice Loudness: Normal Thought Process: Goal Oriented Thought Disorder: Not Present Hallucinations: Denies Suicidal Ideation: Denies Homicidal Ideation: Denies Insight/Judgement: Fair Sleep: Fair Appetite: Good Muscle strength/Tone: Normal Gait/Station: Normal Psychiatric Findings - Problem List ([place] 1, 2,3) (1) Alcohol dependence Status: Chronic (2) Asthma Status: Chronic Qualifiers: Comment: last episode "years ago" (3) Bipolar I disorder, most recent episode mixed Status: Chronic (4) Cocaine dependence Status: Chronic (5) Obesity Status: Chronic Qualifiers: (6) PCP abuse Status: Chronic (7) PTSD (post-traumatic stress disorder) Status: Chronic - Initial Treatment Plan Initial Treatment Plan: Continue Seroquel 100 mg po bid. Will monitor progress.
--- NOTE | 2017-09-09 09:56 | PN ---
S Progress Note Note: Patient left the unit AMA without notifying the staff ,see staff notes for details.
== END 2017-09-08 10:58 | disposition left against medical advice (07) | DRG 770 ==
LOC: Y5N 18:18
PROVIDERS: ADMIT Psychiatry & Neurology Psychiatry; ATTEND Psychiatry & Neurology Psychiatry
PROC: HZ42ZZZ Group Counseling for Substance Abuse Treatment, Cognitive-Behavioral (ICD-10-PCS; principal; 2017-09-06)
DX: F10.230 Alcohol dependence with withdrawal, uncomplicated (principal); F14.20 Cocaine dependence, uncomplicated; F16.10 Hallucinogen abuse, uncomplicated; F43.10 Post-traumatic stress disorder, unspecified; F31.60 Bipolar disorder, current episode mixed, unspecified; J45.909 Unspecified asthma, uncomplicated